=== PATIENT | male | born 1990 | race Caucasian/White ===

== ENCOUNTER → 2018-04-14 | Outpatient (CLI) | payer MEDICARE, OTHER ==
[~2018-04-14] MED LIST: ARIP10 PO; ATOR10 PO; CALC.25 PO; CHOL10002; Crutch1 EACH MISC; Desyrel50 MG; Floxin10 ML TOP; LISI20 PO; Norco 5-325 Ta1 EACH PO; Omeprazole20 M1; PRED20 PO; RANI150 PO; RAYALDEE30 MCG PO; SERT25 PO
[2018-04-14 15:14] LABS: BASOPHILS ABSOLUTE AUTO 0.08 K/mm3 (0.00-0.23); BASOPHILS PERCENT AUTO 1 % (0-2); EOSINOPHILS PERCENT AUTO 5 % (0-6); Hematocrit 44.3 % (37.0-53.0); Hemoglobin 15.2 g/dL (13.5-17.5); IMMATURE GRAN ABSOLUTE AUTO 0.01 K/mm3 (0.00-0.10); IMMATURE GRAN PERCENT AUTO 0 % (0-1); LYMPHOCYTES ABSOLUTE AUTO 2.17 K/mm3 (0.84-5.20); LYMPHOCYTES PERCENT AUTO 35 % (21-46); MONOCYTES ABSOLUTE AUTO 0.55 K/mm3 (0.16-1.47); MONOCYTES PERCENT AUTO 9 % (4-13); Mean Corpuscular HGB 31.2 pg (26.0-34.0); Mean Corpuscular HGB Conc 34.3 g/dL (31.5-36.5); Mean Corpuscular Volume 91 fL (80-100); Mean Platelet Volume 9.2 fL (9.1-12.4); NEUTROPHILS ABSOLUTE AUTO 3.08 K/mm3 (1.96-9.15); NEUTROPHILS PERCENT AUTO 50 % (41-73); Platelet Count 335 K/mm3 (150-400); RDW Coefficient Variation 12.5 % (11.7-14.2); RDW Standard Deviation 41.7 fL (35.1-46.3); Red Blood Cell Count 4.87 M/mm3 (4.30-5.90); White Blood Cell Count 6.19 K/mm3 (4.00-11.30)
[2018-04-14 15:31] LABS: Albumin, Blood 3.2 g/dL (3.4-5.0); Albumin/Globulin Ratio 0.8 (0.8-1.8); Bilirubin, Total 0.2 mg/dL (0.1-1.0); Calcium, Blood 8.9 mg/dL (8.5-10.1); Creatinine, Blood 2.63 mg/dL (0.60-1.20); Potassium, Blood 4.1 mmol/L (3.5-5.5); Total Protein, Blood 7.2 g/dL (6.4-8.2)
== END ==
LOC: LAB EV 15:09 → LAB SHORT 15:09
PROVIDERS: Family Medicine
DX: F19.10 Other psychoactive substance abuse, uncomplicated (principal)
CPT/HCPCS: 80053; 85025; 85651; 86140

== ENCOUNTER → 2018-06-04 | Outpatient (CLI) | payer MEDICARE, OTHER ==
[~2018-06-04] MED LIST changes: +ACIDOPHILUS LA1 EACH PO; +CHOL10002 PO; +CIPR250 PO; +Calcitriol0.25 MCG PO; +DOCU100 PO; +ONDA4ODT MM; +TRAZ50 PO; +Tylenol325 MG PO
[2018-06-04 11:17] LABS: BASOPHILS ABSOLUTE AUTO 0.06 K/mm3 (0.00-0.23); BASOPHILS PERCENT AUTO 1 % (0-2); EOSINOPHILS ABSOLUTE AUTO 0.15 K/mm3 (0.00-0.68); EOSINOPHILS PERCENT AUTO 2 % (0-6); Hematocrit 46.9 % (37.0-53.0); Hemoglobin 15.8 g/dL (13.5-17.5); IMMATURE GRAN ABSOLUTE AUTO 0.02 K/mm3 (0.00-0.10); IMMATURE GRAN PERCENT AUTO 0 % (0-1); LYMPHOCYTES ABSOLUTE AUTO 1.59 K/mm3 (0.84-5.20); LYMPHOCYTES PERCENT AUTO 19 % (21-46); MONOCYTES ABSOLUTE AUTO 0.54 K/mm3 (0.16-1.47); MONOCYTES PERCENT AUTO 6 % (4-13); Mean Corpuscular HGB 31.1 pg (26.0-34.0); Mean Corpuscular HGB Conc 33.7 g/dL (31.5-36.5); Mean Corpuscular Volume 92 fL (80-100); NEUTROPHILS ABSOLUTE AUTO 6.22 K/mm3 (1.96-9.15); NEUTROPHILS PERCENT AUTO 73 % (41-73); Platelet Count 327 K/mm3 (150-400); RDW Coefficient Variation 12.8 % (11.7-14.2); Red Blood Cell Count 5.08 M/mm3 (4.30-5.90); White Blood Cell Count 8.58 K/mm3 (4.00-11.30)
[2018-06-04 11:31] LABS: Albumin, Blood 3.7 g/dL (3.4-5.0); Albumin/Globulin Ratio 0.9 (0.8-1.8); Bilirubin, Total 0.4 mg/dL (0.1-1.0); Bun/Creatinine Ratio 13.7 (12.0-20.0); Globulin, Blood 4.3 g/dL (2.2-4.0); Potassium, Blood 4.9 mmol/L (3.5-5.5)
== END | disposition home or self-care (01) ==
LOC: LAB SHORT 11:11 → LAB EV 11:11
PROVIDERS: Physician Assistant Medical
DX: R10.84 Generalized abdominal pain (principal); Z77.011 Contact with and (suspected) exposure to lead
CPT/HCPCS: 80053; 83655; 83690; 85025

== ENCOUNTER 2018-06-05 18:09 | Inpatient (IN) | payer MEDICARE, OTHER ==
[~2018-06-05] VITALS: Ht 175.3 cm; Wt 102.0 kg
[~2018-06-05 18:09] MED LIST changes: -ACIDOPHILUS LA1 EACH PO; -CHOL10002 PO; -CIPR250 PO; -Calcitriol0.25 MCG PO; -DOCU100 PO; -ONDA4ODT MM; -TRAZ50 PO; -Tylenol325 MG PO
[2018-06-05] MEDS ORDERED: ARIP10 PO (18:22)
[2018-06-05 21:26] LABS: Source, Urine Clean Catch
[2018-06-05 21:28] LABS: Bilirubin, Urine Neg (Neg); Blood, Urine 1+ (Neg); Glucose Qualitative, Urine Neg (Neg); Ketones, Urine Neg (Neg); Leukocyte Esterase, Urine Neg (Neg); Nitrite, Urine Neg (Neg); Protein, Urine 4+ (Neg); Urobilinogen, Urine NORM (Normal)
[2018-06-05 21:38] LABS: Appearance, Urine Clear (Clear); Color, Urine Yellow (P-Yellow)
[2018-06-05 21:41] LABS: Granular Casts 0-2 /lpf (0); Squamous Epithelial Cells Rare /hpf (Few)
[2018-06-05 21:42] LABS: Bacteria Rare /hpf
[2018-06-05 21:55] LABS: Triglycerides 624 mg/dL (30-140)
[2018-06-05] MEDS ORDERED: Calcitriol0.25 MCG PO (22:14)
[2018-06-05] MEDS ORDERED: TRAZ50 PO (22:15)
[2018-06-05] MEDS ORDERED: ATOR10 PO (22:16)
[2018-06-05] MEDS ORDERED: CHOL10002 PO (22:18)
[2018-06-06 02:33] LABS: Adenovirus F 40/41 Not Detected (NOT DETECT); Astrovirus Not Detected (NOT DETECT); Campylobacter Sp Not Detected (NOT DETECT); Cryptosporidium Not Detected (NOT DETECT); Cyclospora Cayetanensis Not Detected (NOT DETECT); E. Coli O157 Not Detected (NOT DETECT); Entamoeba Histolytica Not Detected (NOT DETECT); Enteropathogenic E. coli-EPEC Not Detected (NOT DETECT); Enterotoxigenic E. coli-ETEC Not Detected (NOT DETECT); Giardia Lamblia Not Detected (NOT DETECT); Norovirus GI/GII Not Detected (NOT DETECT); Plesiomonas Shigelloides Not Detected (NOT DETECT); Rotavirus A Not Detected (NOT DETECT); Salmonella Sp Not Detected (NOT DETECT); Sapovirus Not Detected (NOT DETECT); Shiga Toxin-prod E. coli-STEC Not Detected (NOT DETECT); Shigella/Enteroin E. coli-EIEC Not Detected (NOT DETECT); Vibrio Cholerae Not Detected (NOT DETECT); Vibrio Sp Not Detected (NOT DETECT); Yersinia Enterocolitica Not Detected (NOT DETECT)
[2018-06-06 04:09] LABS: Enteroaggregative E. coli-EAEC Detected (NOT DETECT)
[2018-06-06 04:52] LABS: BASOPHILS ABSOLUTE AUTO 0.04 K/mm3 (0.00-0.23); BASOPHILS PERCENT AUTO 0 % (0-2); EOSINOPHILS ABSOLUTE AUTO 0.16 K/mm3 (0.00-0.68); EOSINOPHILS PERCENT AUTO 1 % (0-6); Hematocrit 44.1 % (37.0-53.0); Hemoglobin 14.2 g/dL (13.5-17.5); IMMATURE GRAN ABSOLUTE AUTO 0.04 K/mm3 (0.00-0.10); IMMATURE GRAN PERCENT AUTO 0 % (0-1); LYMPHOCYTES ABSOLUTE AUTO 1.91 K/mm3 (0.84-5.20); LYMPHOCYTES PERCENT AUTO 17 % (21-46); MONOCYTES ABSOLUTE AUTO 1.06 K/mm3 (0.16-1.47); MONOCYTES PERCENT AUTO 10 % (4-13); Mean Corpuscular HGB 31.3 pg (26.0-34.0); Mean Corpuscular HGB Conc 32.2 g/dL (31.5-36.5); Mean Platelet Volume 9.4 fL (9.1-12.4); NEUTROPHILS ABSOLUTE AUTO 7.95 K/mm3 (1.96-9.15); NEUTROPHILS PERCENT AUTO 71 % (41-73); Platelet Count 320 K/mm3 (150-400); RDW Coefficient Variation 13.1 % (11.7-14.2); Red Blood Cell Count 4.53 M/mm3 (4.30-5.90); White Blood Cell Count 11.16 K/mm3 (4.00-11.30)
[2018-06-06 04:53] LABS: Mean Corpuscular Volume 97 fL (80-100)
[2018-06-06 05:26] LABS: Albumin/Globulin Ratio 0.8 (0.8-1.8); Bilirubin, Total 0.4 mg/dL (0.1-1.0); Bun/Creatinine Ratio 11.3 (12.0-20.0); Calcium, Blood 8.3 mg/dL (8.5-10.1); Creatinine, Blood 3.09 mg/dL (0.60-1.20); Potassium, Blood 4.7 mmol/L (3.5-5.5)
[2018-06-07 05:24] LABS: Hematocrit 41.7 % (37.0-53.0); Hemoglobin 13.3 g/dL (13.5-17.5)
[2018-06-07 05:48] LABS: Albumin, Blood 2.7 g/dL (3.4-5.0); Anion Gap 8 mmol/L (6-16); Blood Urea Nitrogen 26 mg/dL (8-24); Bun/Creatinine Ratio 9.9 (12.0-20.0); CO2, Blood 21 mmol/L (21-32); Calcium, Blood 8.5 mg/dL (8.5-10.1); Chloride, Blood 111 mmol/L (98-108); Creatinine, Blood 2.63 mg/dL (0.60-1.20); Glomerular Filtration Rate 31 (60-); Glucose, Blood 83 mg/dL (70-99); Magnesium, Blood 1.7 mg/dL (1.6-2.4); Phosphorus, Blood 3.2 mg/dL (2.5-4.9); Potassium, Blood 4.9 mmol/L (3.5-5.5); Sodium, Blood 140 mmol/L (136-145)
[2018-06-07] MEDS ORDERED: Tylenol325 MG PO (11:43)
[2018-06-07] MEDS ORDERED: CIPR250 PO (11:44)
[2018-06-07] MEDS ORDERED: DOCU100 PO (11:47)
[2018-06-07] MEDS ORDERED: ACIDOPHILUS LA1 EACH PO (11:49)
[2018-06-07] MEDS ORDERED: ONDA4ODT MM (11:50)
== END 2018-06-07 13:15 | disposition home or self-care (01) | DRG 392 ==
LOC: ER 18:09 → MEDS 21:22 → ENPENDDIS 06-07 11:30 → MEDS 06-07 13:15
PROVIDERS: Internal Medicine; Internal Medicine Nephrology; Nurse Practitioner Acute Care
DX: K57.32 Diverticulitis of large intestine without perforation or abscess without bleeding (principal); A04.4 Other intestinal Escherichia coli infections; N17.9 Acute kidney failure, unspecified; N18.3 Chronic kidney disease, stage 3 (moderate); I12.9 Hypertensive chronic kidney disease with stage 1 through stage 4 chronic kidney disease, or unspecified chronic kidney disease; F25.9 Schizoaffective disorder, unspecified; D63.1 Anemia in chronic kidney disease; E86.9 Volume depletion, unspecified; E78.5 Hyperlipidemia, unspecified; M10.9 Gout, unspecified; E88.09 Other disorders of plasma-protein metabolism, not elsewhere classified; R80.9 Proteinuria, unspecified; R31.29 Other microscopic hematuria; R74.8 Abnormal levels of other serum enzymes; Z79.899 Other long term (current) drug therapy; Z88.1 Allergy status to other antibiotic agents; Z88.0 Allergy status to penicillin; Z88.2 Allergy status to sulfonamides; Z88.8 Allergy status to other drugs, medicaments and biological substances; Z87.891 Personal history of nicotine dependence
CPT/HCPCS: 36415; 80053; 80069; 81001; 82570; 83690; 83735; 84300; 84478; 85014; 85018; 85025; 85651; 87507; 89055; 96360; 99284-25; J0744; J2060; J2405; J3010; J7030

== ENCOUNTER 2018-09-29 08:40 | Day surgery (SDC) | payer MEDICARE, OTHER ==
[~2018-09-29 08:40] MED LIST changes: +ACIDOPHILUS LA1 EACH PO; +CHOL10002 PO; +CIPR250 PO; +Calcitriol0.25 MCG PO; +DOCU100 PO; +ONDA4ODT MM; +TRAZ50 PO; +Tylenol325 MG PO
--- NOTE | 2018-09-29 10:05 | NUR ---
INTO STEP VIA YAS. BANDAIDE TO RIGHT LOWER BACK C/D/I. PT REPORTS 3/10 PAIN TO BIOPSY SITE. BP 184/126. PT DENIES NAUSEA. DANIE INITIATED.
--- NOTE | 2018-09-29 10:52 | NUR ---
GENESIS NDIAYE, RPA NOTIFIED THAT PT REPORTING 5/10 PAIN TO BIOPSY SITE.-ORDER OBTAINED FOR TYLENOL 1000MG PO X 1. SEE EMAR.
--- NOTE | 2018-09-29 11:26 | NUR ---
PT CONTINUES TO BE HYPERTENSIVE. REPORTS 2/10 PAIN TO BIOPSY SITE. PT TOLERATING FOOD AND FLUIDS WELL. UP TO BRP X 1 WITHOUT DIFFICULTY.
--- NOTE | 2018-09-29 11:49 | NUR ---
PT DENIES PAIN AT THIS TIME. DISCHARGE INSTRUCTIONS GIVEN. PT AND S/O VERBALIZE UNDERSTANDING.
--- NOTE | 2018-09-29 11:53 | NUR ---
PT TO CT VIA GURNEY. PT TO BE DISCHARGED POST CT SCAN.
--- NOTE | 2018-09-29 12:01 | NUR ---
PT TO CT SCAN-BLEEDING NOTED. PT TO BE MONITORED FOR 2 ADDITIONAL HOURS-PER GENESIS RPA. PT DENIES PAIN-BANDAIDE TO RIGHT LOWER BACK REMAINS C/D/I-NO NOTED BLEEDING OR SWELLING.
[2018-09-29 12:31] LABS: Performing Lab SYMBIODX; Test Name TISSUE BIOPSY
--- NOTE | 2018-09-29 12:40 | NUR ---
PT APPEARS TO BE SLEEPING WHEN NOT DISTURBED. BP 147/91
--- NOTE | 2018-09-29 13:02 | NUR ---
PT RESTING QUIETLY WITHOUT NOTED DISTRESS. S/O REMAINS AT BEDSIDE.
--- NOTE | 2018-09-29 13:48 | NUR ---
PT TO CT SCAN VIA [place].
--- NOTE | 2018-09-29 13:56 | NUR ---
PT OK TO DISCHARGE TO HOME PER RPA. GENESIS
[2018-10-24 13:22] LABS: Result SEE PATHOTH RESULTS
== END 2018-09-29 11:55 | disposition home or self-care (01) ==
LOC: CT 08:40
PROVIDERS: Internal Medicine Nephrology
DX: R80.9 Proteinuria, unspecified (principal); N18.3 Chronic kidney disease, stage 3 (moderate); I12.9 Hypertensive chronic kidney disease with stage 1 through stage 4 chronic kidney disease, or unspecified chronic kidney disease; D63.1 Anemia in chronic kidney disease; N25.81 Secondary hyperparathyroidism of renal origin; E86.9 Volume depletion, unspecified; E78.00 Pure hypercholesterolemia, unspecified; F17.210 Nicotine dependence, cigarettes, uncomplicated; E87.5 Hyperkalemia; E55.9 Vitamin D deficiency, unspecified; Z88.9 Allergy status to unspecified drugs, medicaments and biological substances; Z88.0 Allergy status to penicillin; Z88.2 Allergy status to sulfonamides
CPT/HCPCS: 50200; 77012; 88329

== ENCOUNTER 2018-10-20 09:13 | Day surgery (SDC) | payer MEDICARE, OTHER ==
--- NOTE | 2018-10-20 13:40 | NUR ---
10/20/18 1340 Elizabeth Santiago PT STS HIS PREP INSTRUCTIONS INDICATED 4 BOTTLES, HOWEVER HE ONLY RECEIVED 2. PT STS HE FOLLOWED DIRECTIONS CONSUMING 1 BOTTLE ON SATURDAY EVENING, AND 1 BOTTLE ON SATURDAY MORNING. PT DID NOT HAVE ANY REMAINING PREP FOR THE REQUIRED CLEAN OUT INSTRUCTIONS FOR Saturday & Saturday. PT ARRIVED TO [facility] AND INFORMED STAFF OF SITUATION. THIS NURSE CONSULTED DR. AWAD & WAS INSTRUCTED TO GIVE PT ENEMA TO HELP CLEAR OUT. PT RESULTS WERE GREEN/CLOWDY WITH THICK SEDAMENT. PT COMPLETED 2ND ENEMA WITH NO IMPROVED RESULTS. PT CONSULTED WITH & PROCEDURE NURSE IN WHICH THE DECISION WAS MADE TO CANCEL THE PROCEDURE & RESCHEDULE.
== END 2018-10-20 10:40 | disposition home or self-care (01) ==
LOC: ORSCSDS 09:13
DX: R10.9 Unspecified abdominal pain (principal); Z53.9 Procedure and treatment not carried out, unspecified reason; K92.1 Melena; K86.1 Other chronic pancreatitis; K57.32 Diverticulitis of large intestine without perforation or abscess without bleeding
CPT/HCPCS: J7120

== ENCOUNTER 2019-11-20 17:00 | Inpatient (IN) | payer MEDICARE, OTHER ==
[~2019-11-20] VITALS: Ht 175.3 cm; Wt 107.5 kg
[~2019-11-20 17:00] MED LIST changes: -Omeprazole20 M1; +Omeprazole20 M1 PO
[2019-11-20 17:46] LABS: BASOPHILS ABSOLUTE AUTO 0.05 K/mm3 (0.00-0.23); BASOPHILS PERCENT AUTO 1 % (0-2); EOSINOPHILS ABSOLUTE AUTO 0.19 K/mm3 (0.00-0.68); EOSINOPHILS PERCENT AUTO 3 % (0-6); Hematocrit 43.1 % (37.0-53.0); Hemoglobin 14.1 g/dL (13.5-17.5); IMMATURE GRAN ABSOLUTE AUTO 0.02 K/mm3 (0.00-0.10); IMMATURE GRAN PERCENT AUTO 0 % (0-1); LYMPHOCYTES ABSOLUTE AUTO 1.77 K/mm3 (0.84-5.20); LYMPHOCYTES PERCENT AUTO 24 % (21-46); MONOCYTES PERCENT AUTO 7 % (4-13); Mean Corpuscular HGB Conc 32.7 g/dL (31.5-36.5); Mean Corpuscular Volume 92 fL (80-100); Mean Platelet Volume 9.2 fL (9.1-12.4); NEUTROPHILS ABSOLUTE AUTO 4.82 K/mm3 (1.96-9.15); NEUTROPHILS PERCENT AUTO 66 % (41-73); Platelet Count 303 K/mm3 (150-400); RDW Standard Deviation 40.6 fL (35.1-46.3); White Blood Cell Count 7.35 K/mm3 (4.00-11.30)
[2019-11-20 17:47] LABS: Source, Urine Clean Catch
[2019-11-20 17:50] LABS: Bilirubin, Urine Neg (Neg); Blood, Urine 3+ (Neg); Glucose Qualitative, Urine Neg (Neg); Ketones, Urine Neg (Neg); Leukocyte Esterase, Urine Neg (Neg); Nitrite, Urine Neg (Neg); Protein, Urine 4+ (Neg); Specific Gravity, Urine 1.015 (1.003-1.022); Urobilinogen, Urine NORM (Normal)
[2019-11-20] MEDS ORDERED: CLON.1 PO (17:52)
[2019-11-20 17:53] LABS: Appearance, Urine Clear (Clear); Color, Urine Yellow (P-Yellow)
[2019-11-20 17:57] LABS: Amorphous Light (0-Heavy); Bacteria Few /hpf; Mucus Light (0-Heavy); Squamous Epithelial Cells Rare /hpf (Few); White Blood Cells, Urine 0-2 /hpf (0-5)
[2019-11-20 18:05] LABS: Albumin, Blood 3.2 g/dL (3.4-5.0); Albumin/Globulin Ratio 0.8 (0.8-1.8); Bilirubin, Total 0.2 mg/dL (0.1-1.0); Bun/Creatinine Ratio 10.8 (12.0-20.0); Calcium, Blood 9.1 mg/dL (8.5-10.1); Creatinine, Blood 4.27 mg/dL (0.60-1.20); Globulin, Blood 3.9 g/dL (2.2-4.0); Potassium, Blood 4.1 mmol/L (3.5-5.5); Total Protein, Blood 7.1 g/dL (6.4-8.2)
[2019-11-20 22:02] LABS: CHOL/HDL RATIO 9.5; Cholesterol 312 mg/dL (50-200); HDL Cholesterol 33 mg/dL (>39); LDL/HDL RATIO Unable to Calculate; Low Density Lipoprotein Chol Unable to Calculate mg/dL (0-110); Triglycerides 535 mg/dL (30-140); Very Low Density Lipoprot Chol Unable to Calculate mg/dL (6-28)
--- NOTE | 2019-11-21 00:06 | NUR ---
2330 PT ADMITTED TO ROOM 309 PER CART FROM ER; PT HAS THE FOLLOWING BP LISTED BELOW; REPORT RECEIVED FROM FEROZ HAGER IN ER. LAYIN/132 RIGHT UPPER ARM....204/119 LEFT UPPER ARM SITTIN/161 RIGHT UPPER ARM STANDIN/151 RIGHT LOWER ARM PT RATES ABD PAIN 6/10 AND FEELS SLIGHTLY ANXIOUS AT THIS MOMENT IN ROOM; VOICED INABILITY TAKE ANY MEDS SINCE 11/19/19. 0005 DR POSADA NOTIFIED WITH ORDERS RECEIVED.
--- NOTE | 2019-11-21 05:32 | NUR ---
SHIFT SUMMARY: 29 Y/O MALE HAD RESTLESS NIGHT AT TIMES THIS SHIFT; PTS BP VERY HYPERTENSIVE AT TIMES (APRESSOLINE 10MG IVP GIVEN X 1 WITH SLIGHT AFFECT NOTED); PTS ABD PAIN RATED 6/10 WITH DILAUDID 1MG IVP X 1 AND FENTANYL 50MG IVP X 1 GIVEN; ALERT AND ORIENTED X 4; BED LOW POSITION WITH CALL LIGHT AT SIDE; VOIDING CLEAR YELLOW FLUID.
[2019-11-21 05:45] LABS: Hematocrit 40.9 % (37.0-53.0); Hemoglobin 13.4 g/dL (13.5-17.5); Mean Corpuscular HGB 30.1 pg (26.0-34.0); Mean Corpuscular HGB Conc 32.8 g/dL (31.5-36.5); Mean Corpuscular Volume 92 fL (80-100); Mean Platelet Volume 9.5 fL (9.1-12.4); Platelet Count 283 K/mm3 (150-400); RDW Coefficient Variation 12.2 % (11.7-14.2); RDW Standard Deviation 41.1 fL (35.1-46.3); Red Blood Cell Count 4.45 M/mm3 (4.30-5.90)
[2019-11-21 06:10] LABS: Albumin/Globulin Ratio 0.9 (0.8-1.8); Bilirubin, Total 0.4 mg/dL (0.1-1.0); Bun/Creatinine Ratio 9.9 (12.0-20.0); Calcium, Blood 8.6 mg/dL (8.5-10.1); Creatinine, Blood 4.13 mg/dL (0.60-1.20); Globulin, Blood 3.5 g/dL (2.2-4.0); Potassium, Blood 3.8 mmol/L (3.5-5.5); Total Protein, Blood 6.5 g/dL (6.4-8.2)
--- NOTE | 2019-11-21 11:32 | NUR ---
IV FLUIDS TURNED DOWN TO 50ml/HR PER EMAR ORDERS.
[2019-11-21 13:19] LABS: Amylase, Blood 552 U/L (25-115)
--- NOTE | 2019-11-21 16:24 | NUR ---
PATIENT HAD A BUSY DAY BETWEEN THE ORDERS PLACED BY DR AL AND DR HUFF; MANY LABS, IMAGING, ETC. PATIENT STARTED OUT VERY HYPERTENSIVE AND SLOWLY HIS BLOOD PRESSURE HAS COME DOWN TO A SOMEWHAT NORMAL LEVEL. IV FLUIDS RUNNING AT 50/HR. PATIENT PLEASANT AND COOPERATIVE WITH STAFF. WILL CONTINUE TO MONITOR AND PROVIDE CARE NEEDED.
[2019-11-22 05:10] LABS: Hematocrit 39.9 % (37.0-53.0)
[2019-11-22 05:29] LABS: Albumin, Blood 2.8 g/dL (3.4-5.0); Anion Gap 8 mmol/L (6-16); Blood Urea Nitrogen 37 mg/dL (8-24); CO2, Blood 24 mmol/L (21-32); Calcium, Blood 8.6 mg/dL (8.5-10.1); Chloride, Blood 110 mmol/L (98-108); Creatinine, Blood 4.09 mg/dL (0.60-1.20); Glomerular Filtration Rate 18 (60-); Glucose, Blood 88 mg/dL (70-99); Magnesium, Blood 1.9 mg/dL (1.6-2.4); Potassium, Blood 3.9 mmol/L (3.5-5.5); Sodium, Blood 142 mmol/L (136-145)
[2019-11-22 05:31] LABS: Amylase, Blood 1024 U/L (25-115)
[2019-11-22] MEDS ORDERED: AMLO5 PO (10:06)
[2019-11-22] MEDS ORDERED: FAMO10 PO (10:07)
--- NOTE | 2019-11-22 10:25 | NUR ---
PATIENT GIVEN DISCHARGE INSTRUCTIONS WITH HIS GIRLFRIEND AT BEDSIDE. IV REMOVED. ALL QUESTIONS ANSWERED. EDUCATIONAL MATERIAL PROVIDED TO THE PATIENT. PATIENT TO DISCHARGE HOME WITH GIRLFRIEND. PATIENT LEFT NOW AT 1026.
== END 2019-11-22 10:33 | disposition home or self-care (01) | DRG 392 ==
LOC: ER 17:00 → MEDS 17:01 → ER 17:01 → MEDS 23:33
PROVIDERS: Emergency Medicine; Internal Medicine; Internal Medicine Nephrology; Physician Assistant; ADMIT Internal Medicine
DX: K52.9 Noninfective gastroenteritis and colitis, unspecified (principal); N02.8 Recurrent and persistent hematuria with other morphologic changes; N18.5 Chronic kidney disease, stage 5; N17.9 Acute kidney failure, unspecified; I12.0 Hypertensive chronic kidney disease with stage 5 chronic kidney disease or end stage renal disease; E78.1 Pure hyperglyceridemia; I77.6 Arteritis, unspecified; F25.9 Schizoaffective disorder, unspecified; M10.9 Gout, unspecified; F17.290 Nicotine dependence, other tobacco product, uncomplicated; E86.0 Dehydration; D63.1 Anemia in chronic kidney disease
CPT/HCPCS: 36415; 74150; 76705; 80053; 80061; 80069; 81001; 82150; 83690; 83735; 84145; 85014; 85018; 85025; 85027; 85651; 86141; 86850; 86900; 86901; 96361; 96374; 96375; 96376; 99285-25; A9270; G0378; J0360; J1170; J2405; J3010; J7030

== ENCOUNTER 2019-12-02 10:56 | Day surgery (SDC) | payer MEDICARE, OTHER ==
[~2019-12-02] VITALS: Ht 175.3 cm; Wt 103.0 kg
[~2019-12-02 10:56] MED LIST changes: +AMLO5 PO; +CLON.1 PO; +FAMO10 PO
[2019-12-02] MEDS ORDERED: FENO160 PO (11:33)
--- NOTE | 2019-12-02 14:42 | NUR ---
PT MEDICATED WITH TYLENOL 650MG PO FOR PAIN AT CATH INCERTION SITE 01/23. (V/O DR. RAYMOND) PT SITTING UP IN RECLINER EATING A SANDWICH. NO BLEEDING, OOZING OR HEMATOMA NOTED AT SITE. VSS. WILL CONTINUE TO MONITOR.
--- NOTE | 2019-12-02 15:31 | NUR ---
PT MEDICATED WITH FENTANYL 25MCG IV FOR PAIN 12/24 V/O FROM DR. BHATT. PLAN TO MEDICATE PT AND DISCHARGE SO PT CAN FILL HIS NORCO RX AND REST AT HOME. PT AGREES WITH PLAN AND WOULD LIKE TO GO HOME.
--- NOTE | 2019-12-02 15:53 | NUR ---
PT REPORTS IMPROVEMENT IN PAIN (2/10) AT CATHETER INSERTION SITE. PT DRESSED SELF WITH NO COMPLICATIONS. PT STATES HIS UNDERSTANDING OF DISCHARGE AND SITE CARE INSTRUCTIONS AND DENIES ANY QUESTIONS OR CONCERNS. PTS VSS. DENIES ANY CP. IV DCD WITH CATH IN TACT. PT DCD WITH HAND WRITTEN RX FOR NORCO IN HAND. PT TAKEN TO FRONT ENTERENCE VIA WHEELCHAIR BY THIS RN WHERE PTS MOTHER AWAITS.
== END 2019-12-02 15:50 | disposition home or self-care (01) ==
LOC: MHTC 10:56
DX: I12.0 Hypertensive chronic kidney disease with stage 5 chronic kidney disease or end stage renal disease (principal); N18.6 End stage renal disease; F25.9 Schizoaffective disorder, unspecified; Z88.0 Allergy status to penicillin; Z88.1 Allergy status to other antibiotic agents; Z79.899 Other long term (current) drug therapy; Z87.891 Personal history of nicotine dependence
CPT/HCPCS: 99152; 99153; A9270; C1750; C1769; J1644; J2250; J3010; J7040

== ENCOUNTER 2019-12-04 17:35 | Emergency (ER) | payer MEDICARE, OTHER ==
[~2019-12-04] VITALS: Ht 175.3 cm; Wt 104.3 kg
[~2019-12-04 17:35] MED LIST changes: +FENO160 PO
[2019-12-04 17:59] LABS: BASOPHILS ABSOLUTE AUTO 0.08 K/mm3 (0.00-0.23); BASOPHILS PERCENT AUTO 1 % (0-2); EOSINOPHILS ABSOLUTE AUTO 0.12 K/mm3 (0.00-0.68); EOSINOPHILS PERCENT AUTO 1 % (0-6); Hematocrit 46.1 % (37.0-53.0); Hemoglobin 15.2 g/dL (13.5-17.5); IMMATURE GRAN ABSOLUTE AUTO 0.04 K/mm3 (0.00-0.10); IMMATURE GRAN PERCENT AUTO 0 % (0-1); LYMPHOCYTES ABSOLUTE AUTO 1.21 K/mm3 (0.84-5.20); LYMPHOCYTES PERCENT AUTO 10 % (21-46); MONOCYTES ABSOLUTE AUTO 0.98 K/mm3 (0.16-1.47); MONOCYTES PERCENT AUTO 8 % (4-13); Mean Corpuscular HGB 30.3 pg (26.0-34.0); Mean Corpuscular Volume 92 fL (80-100); Mean Platelet Volume 9.8 fL (9.1-12.4); NEUTROPHILS ABSOLUTE AUTO 9.85 K/mm3 (1.96-9.15); NEUTROPHILS PERCENT AUTO 80 % (41-73); Platelet Count 307 K/mm3 (150-400); RDW Coefficient Variation 12.3 % (11.7-14.2); RDW Standard Deviation 41.4 fL (35.1-46.3); Red Blood Cell Count 5.02 M/mm3 (4.30-5.90); White Blood Cell Count 12.28 K/mm3 (4.00-11.30)
[2019-12-04 18:17] LABS: Albumin, Blood 3.8 g/dL (3.4-5.0); Albumin/Globulin Ratio 0.9 (0.8-1.8); Bilirubin, Total 0.5 mg/dL (0.1-1.0); Bun/Creatinine Ratio 11.5 (12.0-20.0); Calcium, Blood 9.8 mg/dL (8.5-10.1); Creatinine, Blood 5.58 mg/dL (0.60-1.20); Globulin, Blood 4.4 g/dL (2.2-4.0); Total Protein, Blood 8.2 g/dL (6.4-8.2)
[2019-12-04 18:37] LABS: Source, Urine Clean Catch
[2019-12-04 18:39] LABS: Bilirubin, Urine Neg (Neg); Blood, Urine 2+ (Neg); Glucose Qualitative, Urine Neg (Neg); Ketones, Urine 1+ (Neg); Leukocyte Esterase, Urine Neg (Neg); Nitrite, Urine Neg (Neg); Protein, Urine 4+ (Neg); Urobilinogen, Urine NORM (Normal)
[2019-12-04 18:47] LABS: Appearance, Urine Clear (Clear); Color, Urine Yellow (P-Yellow)
[2019-12-04 18:49] LABS: Bacteria Few /hpf; Squamous Epithelial Cells Not Seen /hpf (Few)
[2019-12-04] MEDS ORDERED: Flagyl500 MG PO (20:19)
[2019-12-04] MEDS ORDERED: Norco 5-325 Ta1 EACH PO (20:19)
[2019-12-04] MEDS ORDERED: Cipro500 MG PO (20:19)
== END 2019-12-04 20:50 | disposition home or self-care (01) ==
LOC: ER 17:35
PROVIDERS: Physician Assistant
DX: K57.32 Diverticulitis of large intestine without perforation or abscess without bleeding (principal); F25.9 Schizoaffective disorder, unspecified; M10.9 Gout, unspecified; E78.5 Hyperlipidemia, unspecified; I12.9 Hypertensive chronic kidney disease with stage 1 through stage 4 chronic kidney disease, or unspecified chronic kidney disease; N18.4 Chronic kidney disease, stage 4 (severe); F17.210 Nicotine dependence, cigarettes, uncomplicated; Z88.0 Allergy status to penicillin; Z88.2 Allergy status to sulfonamides; Z88.1 Allergy status to other antibiotic agents; Z88.8 Allergy status to other drugs, medicaments and biological substances; Z79.899 Other long term (current) drug therapy
CPT/HCPCS: 36415; 74176; 80053; 81001; 83690; 85025; 93005; 93010; 96374; 99284-25; A9270-GY; J2405

== ENCOUNTER 2019-12-15 22:29 | Inpatient (IN) | payer MEDICARE, OTHER ==
[~2019-12-15] VITALS: Ht 175.3 cm; Wt 102.9 kg
[~2019-12-15 22:29] MED LIST changes: +Cipro500 MG PO; +Flagyl500 MG PO
[2019-12-15 23:18] LABS: BASOPHILS ABSOLUTE AUTO 0.05 K/mm3 (0.00-0.23); BASOPHILS PERCENT AUTO 1 % (0-2); EOSINOPHILS ABSOLUTE AUTO 0.21 K/mm3 (0.00-0.68); EOSINOPHILS PERCENT AUTO 2 % (0-6); Hematocrit 44.6 % (37.0-53.0); Hemoglobin 14.4 g/dL (13.5-17.5); IMMATURE GRAN ABSOLUTE AUTO 0.02 K/mm3 (0.00-0.10); IMMATURE GRAN PERCENT AUTO 0 % (0-1); LYMPHOCYTES ABSOLUTE AUTO 1.99 K/mm3 (0.84-5.20); LYMPHOCYTES PERCENT AUTO 21 % (21-46); MONOCYTES ABSOLUTE AUTO 0.71 K/mm3 (0.16-1.47); MONOCYTES PERCENT AUTO 8 % (4-13); Mean Corpuscular HGB Conc 32.3 g/dL (31.5-36.5); Mean Corpuscular Volume 93 fL (80-100); Mean Platelet Volume 9.6 fL (9.1-12.4); NEUTROPHILS ABSOLUTE AUTO 6.53 K/mm3 (1.96-9.15); NEUTROPHILS PERCENT AUTO 69 % (41-73); Platelet Count 344 K/mm3 (150-400); RDW Coefficient Variation 11.9 % (11.7-14.2); RDW Standard Deviation 41.1 fL (35.1-46.3); White Blood Cell Count 9.51 K/mm3 (4.00-11.30)
[2019-12-15 23:40] LABS: Alanine Aminotransfer (ALT/SGP 20 U/L (12-78); Albumin, Blood 3.4 g/dL (3.4-5.0); Albumin/Globulin Ratio 0.8 (0.8-1.8); Alk Phos 43 U/L (50-136); Anion Gap 10 mmol/L (6-16); Aspartate Aminotrans (AST/SGOT 16 U/L (12-37); Bilirubin, Total 0.2 mg/dL (0.1-1.0); Blood Urea Nitrogen 47 mg/dL (8-24); Bun/Creatinine Ratio 7.9 (12.0-20.0); CO2, Blood 24 mmol/L (21-32); Calcium, Blood 8.6 mg/dL (8.5-10.1); Chloride, Blood 106 mmol/L (98-108); Creatinine, Blood 5.96 mg/dL (0.60-1.20); Glomerular Filtration Rate 12 (60-); Glucose, Blood 134 mg/dL (70-99); Potassium, Blood 4.3 mmol/L (3.5-5.5); Sodium, Blood 140 mmol/L (136-145); Total Protein, Blood 7.4 g/dL (6.4-8.2); Troponin I <0.015 ng/mL (0.000-0.040)
--- NOTE | 2019-12-16 00:52 | NUR ---
Pt arrival to PCU 11 at 0054 via gurney with ED RN at bedside. pt independant transfer, alert and oriented. pt reporting very painful with even slight inspiration, pt with rapid, shallow breaths. vss. oriented to room and questions answered. Awaiting admitting drAshia to assess pt for admit orders. No acute concerns to note at this time, will continue to monitor.
[2019-12-16] MEDS ORDERED: CALC.25 PO (01:47)
--- NOTE | 2019-12-16 06:23 | NUR ---
Shift Summary Pt admitted this shift for bilateral PE. VSS, oxygen saturations 98% on RA, alert and oriented, able to express needs with call light, voids in urinal at bedside. Pt started on heparin gtt this shift, rate per orders 15u/kg/hr at this time. First dose of warfarin given this shift, pt educated on risks, side effects, and education provided on vitamin K+. Pt is had first ever hemodialysis on 12/14/19 (PE pain began 1hr post hemodialysis); Dr Stevens consulted and in to see pt this AM. Plan for hemodialysis today. Pt aware of plan. Permicath on RCW. Site WNL. No acute changes from admission assessment. Will continue to monitor.
--- NOTE | 2019-12-16 07:49 | NUR ---
Bedside report was received from Denice Preciado. FEROZ. the pt appears to be sleeping, but awakens easily to gentle verbal stimuli, and is then alert and oriented. Diaphoresis noted , but pt denies feeling feverish or chilled. OraL temperature taken, WNL. Heparin drip was verified at bedside report.
--- NOTE | 2019-12-16 09:12 | NUR ---
Pt taken to dialysis in wheelchair by JACKY
[2019-12-16 09:16] LABS: Hematocrit 44.1 % (37.0-53.0); Hemoglobin 13.7 g/dL (13.5-17.5); Mean Corpuscular HGB 29.3 pg (26.0-34.0); Mean Corpuscular HGB Conc 31.1 g/dL (31.5-36.5); Mean Corpuscular Volume 94 fL (80-100); Mean Platelet Volume 9.8 fL (9.1-12.4); Platelet Count 311 K/mm3 (150-400); RDW Standard Deviation 41.9 fL (35.1-46.3); Red Blood Cell Count 4.68 M/mm3 (4.30-5.90); White Blood Cell Count 7.02 K/mm3 (4.00-11.30)
[2019-12-16 09:31] LABS: International Normalized Ratio 1.05; Prothrombin Time Results 11.2 Sec (9.7-11.5)
[2019-12-16 09:33] LABS: Albumin, Blood 3.2 g/dL (3.4-5.0); Albumin/Globulin Ratio 0.8 (0.8-1.8); Bilirubin, Total 0.2 mg/dL (0.1-1.0); Bun/Creatinine Ratio 7.7 (12.0-20.0); Creatinine, Blood 5.82 mg/dL (0.60-1.20); Potassium, Blood 5.3 mmol/L (3.5-5.5); Total Protein, Blood 7.2 g/dL (6.4-8.2)
--- NOTE | 2019-12-16 18:10 | NUR ---
Sergo had dialysis this morning at 9 am, and stated that it went much better and he felt better than his first two experiences with dialysis. HIs explanation was that they used a different system than before, which made the difference. The pt has requested pain medication twice today, for left flank and left anterior lower rib cage area pain, worse with activity and inspiration. He has been alert, oriented, cooperative and without any other complaints today.
--- NOTE | 2019-12-16 18:22 | NUR ---
Call to pharmacy to ask about coumadin dosing. Pt received coumadin at 0200 this morning, so heparin gtt continues and labs will be rechecked tomorrow morning, and appropriate coumadin dose ordered for tomorrow.
[2019-12-17 01:43] LABS: International Normalized Ratio 1.18; Prothrombin Time Results 12.5 Sec (9.7-11.5)
[2019-12-17 01:49] LABS: Albumin, Blood 3.1 g/dL (3.4-5.0); Anion Gap 6 mmol/L (6-16); Blood Urea Nitrogen 34 mg/dL (8-24); Bun/Creatinine Ratio 6.4 (12.0-20.0); CO2, Blood 29 mmol/L (21-32); Calcium, Blood 8.6 mg/dL (8.5-10.1); Chloride, Blood 102 mmol/L (98-108); Creatinine, Blood 5.28 mg/dL (0.60-1.20); Glomerular Filtration Rate 14 (60-); Glucose, Blood 94 mg/dL (70-99); Hematocrit 42.7 % (37.0-53.0); Hemoglobin 13.6 g/dL (13.5-17.5); Magnesium, Blood 2.1 mg/dL (1.6-2.4); Phosphorus, Blood 5.7 mg/dL (2.5-4.9); Potassium, Blood 4.6 mmol/L (3.5-5.5); Sodium, Blood 137 mmol/L (136-145)
--- NOTE | 2019-12-17 06:01 | NUR ---
SHIFT SUMMARY NO ACUTE CHANGES NOTED THROUGH THE NIGHT. PT REMAINS ON RA, O2 >95%, PT DENIES ANY WORSENING OF SOB, PAIN MANAGED WITH 50 MCG IV FENTANYL PER EMAR. PT STATES PAIN IS POSITIONAL BUT REMAINS IN THE LEFT LOWER FLANK/LOBE AREA. HEATING PAD WAS PROVIDED FOR COMFORT. PT DENIES CP. HE IS INDEPENDENT IN THE ROOM, CALLS FOR ASSISTANCE PRN. HEPARIN GTT INFUSING @ 20 U/KG/HR. PT IS TOLERATING PO INTAKE. VOIDING CLEAR YELLOW URINE WNL, CALL LIGHT IN REACH, WCTM
--- NOTE | 2019-12-17 07:00 | NUR ---
ASSUMED CARE AT THIS TIME, REPORT FROM IFEOMA REDMAN. PT RESTING IN BED AT 45 DEGREE INCLINE. A/A/OX4. DENIES NEEDS AT THIS TIME.
--- NOTE | 2019-12-17 07:00 | NUR ---
HEPARIN INFUSING AT 20 UNITS/ KG, VERIFIED BY FEROZ DIA.
--- NOTE | 2019-12-17 09:13 | NUR ---
SPOKE WITH DIALYSIS NURSE TONYA, 0900 MEDS TO BE HELD PRIOR TO DIALYSIS.
--- NOTE | 2019-12-17 09:30 | NUR ---
TAKEN TO DIAYLSIS VIA WHEEL CHAIR AT THIS TIME.
--- NOTE | 2019-12-17 11:48 | NUR ---
REPORT TO MEDICAL FLOOR RN TO ASSUME CARE.
--- NOTE | 2019-12-17 12:36 | NUR ---
TAKEN TO ROOM 333 FROM DIALYSIS. HEPARIN INFUSING AT 20UNIT/KG AT TIME OF TRANSFER TO MEDICAL FLOOR.
--- NOTE | 2019-12-17 13:12 | NUR ---
PATIENT ARRIVED TO THE FLOOR AT 1300 FROM DIALYSIS. REPORT RECEIVED BY FEROZ FREEMAN IN PCU, BED AND PATIENT'S PERSONAL BELONGINGS BROUGHT TO ROOM 333. PATIENT'S HEPARIN GTT NOTED TO BE INFUSING THROUGH RIGHT ARM IV AT 20U/KG/HR. NEXT PTT AT 1500. ORIENTED TO ROOM, PATIENT INDEPENDENT IN THE ROOM AND CALLS APPROPRIATELY. PATIENT DENIES PAIN, REPORTS TIREDNESS DUE TO INTERRUPTED SLEEP PATTERNS, NAP ENCOURAGED.
--- NOTE | 2019-12-17 16:33 | NUR ---
PATIENT'S HEPARIN GTT REMAINS AT 20U/KG/HR, RECENT PTT LEVEL THERAPEUTIC. NO CHANGE IN RATE PER PHARMACY.
--- NOTE | 2019-12-17 18:44 | NUR ---
SHIFT SUMMARY PATIENT REMAINS ON HEPARIN DRIP 20U/KG/HR, COUMADIN BRIDGING. REPORTS PAIN WELL MANAGED WITH PRN PO ANALGESIC. PATIENT INDEPENDENT IN THE ROOM, DENIES SOB/SLADE.
[2019-12-18 04:36] LABS: International Normalized Ratio 1.31; Prothrombin Time Results 13.8 Sec (9.7-11.5)
--- NOTE | 2019-12-18 05:25 | NUR ---
SHIFT SUMMARY NO ACUTE CHANGES TO REPORT THIS SHIFT. PT CONTINUES TO HAVE LEFT FLANK PAIN THAT IS RELIEVED WITH HYDROCODONE. PT HAS RESTED COMFORTABLY T/O THE NIGHT, HE HAS BEEN INDEPENDENT IN THR ROOM. HEPARIN GTT INFUSING ORDERED WITH NO RATE CHANGES THIS SHIFT. ASSESSMENT REMAINS UNCHANGED. BED IN LOWEST POSITION, CALL LIGHT WITHIN REACH. WILL CONTINUE TO MONITOR AND REPORT TO ONCOMING RN.
[2019-12-18 07:32] LABS: Hemoglobin 13.3 g/dL (13.5-17.5); Mean Platelet Volume 9.8 fL (9.1-12.4); Platelet Count 345 K/mm3 (150-400)
--- NOTE | 2019-12-18 14:17 | NUR ---
ASSUMED CARE ASSUMED CARE OF PT. PT SLEEPING IN ROOM. WILL CONTINUE TO MONITOR.
--- NOTE | 2019-12-18 16:48 | NUR ---
SHIFT SUMMARY PT PAIN WELL CONTROLLED THIS AFTERNOON. PT STATES TOLERABLE PAIN LEVEL. HEPARIN GTT UNCHANGED PER PHARMACY CONSULT. PT SATING WELL THROUGHOUT SHIFT ON RA IN THE 90S. NO OTHER CHANGES IN ASSESSMENT AT THIS TIME. VSS. WILL CONTINUE TO MONITOR UNTIL TURNOVER IS COMPLETE.
[2019-12-19 05:13] LABS: Hemoglobin 13.4 g/dL (13.5-17.5)
[2019-12-19 05:28] LABS: International Normalized Ratio 1.82; Prothrombin Time Results 18.8 Sec (9.7-11.5)
[2019-12-19 05:33] LABS: Albumin, Blood 3.3 g/dL (3.4-5.0); Anion Gap 8 mmol/L (6-16); Blood Urea Nitrogen 40 mg/dL (8-24); Bun/Creatinine Ratio 6.3 (12.0-20.0); CO2, Blood 28 mmol/L (21-32); Calcium, Blood 9.2 mg/dL (8.5-10.1); Chloride, Blood 101 mmol/L (98-108); Creatinine, Blood 6.37 mg/dL (0.60-1.20); Glomerular Filtration Rate 11 (60-); Glucose, Blood 90 mg/dL (70-99); Magnesium, Blood 2.6 mg/dL (1.6-2.4); Phosphorus, Blood 7.7 mg/dL (2.5-4.9); Potassium, Blood 4.6 mmol/L (3.5-5.5); Sodium, Blood 137 mmol/L (136-145)
--- NOTE | 2019-12-19 07:34 | NUR ---
SENIOR MANAGER MMCOE SUMMARY A/O X4. INDEPENDENT IN ROOM. PT HAD SOME PAIN IN LUNGS WHENEVER HE TAKES A DEEP BREATH. DENIES SOB. ROOM AIR SATTING IN THE HIGH 90'S TO 100%. PT STATES IT HURTS THE WORST WHEN HE FALLS ASLEEP AND LAYS DOWN. THIS HAS BEEN AN ONGOING OCCURANCE FOR HIM. CONT. HEPARIN DRIP THROUGHOUT THE NIGHT. MEDICATED FOR PAIN PER EMAR THROUGHOUT THE NIGHT. PLEASANT AND COOPERATIVE. REPORT GIVEN TO AM NURSE.
--- NOTE | 2019-12-19 16:39 | NUR ---
SHIFT SUMMARY PT IS A/O X 4 WITH C/O PAIN X 1 AND PAIN MEDS WERE EFFECTIVE. PT IS VERY INQUISITIVE AND WANTS TO LEARN ABOUT HIS CARE AND DX. PT WENT TO DIALYSIS FIRST THING THIS MORNING AND THEN RETURNED TO HIS ROOM WHEN COMPLETED. HIS DIALYSIS PORT IS C.D.I. TO LEFT CHEST WALL. HEPARIN DRIP CONTINUES ORDERED BY AND MANAGED BY PHARMACIST. PT IS ABLE TO MAKE HIS NEEDS KNOWN AND CALLS FOR HELP WHEN NEEDED. HIS CALL [facility] IS IN REACH.
--- NOTE | 2019-12-19 23:01 | NUR ---
12/19/19 HEPARIN BAG CHANGED AND VERIFIED WITH KIRK Cagle RN.
[2019-12-20 03:26] LABS: Hematocrit 36.6 % (37.0-53.0); Hemoglobin 11.5 g/dL (13.5-17.5)
[2019-12-20 03:38] LABS: International Normalized Ratio 2.12; Prothrombin Time Results 21.7 Sec (9.7-11.5)
[2019-12-20 03:41] LABS: Albumin, Blood 2.9 g/dL (3.4-5.0); Anion Gap 7 mmol/L (6-16); Blood Urea Nitrogen 36 mg/dL (8-24); Bun/Creatinine Ratio 6.6 (12.0-20.0); CO2, Blood 30 mmol/L (21-32); Calcium, Blood 8.4 mg/dL (8.5-10.1); Chloride, Blood 102 mmol/L (98-108); Creatinine, Blood 5.49 mg/dL (0.60-1.20); Glomerular Filtration Rate 13 (60-); Glucose, Blood 85 mg/dL (70-99); Magnesium, Blood 2.2 mg/dL (1.6-2.4); Phosphorus, Blood 6.4 mg/dL (2.5-4.9); Potassium, Blood 4.3 mmol/L (3.5-5.5); Sodium, Blood 139 mmol/L (136-145)
--- NOTE | 2019-12-20 06:13 | NUR ---
12/20/19 0545 PT MEDICATED ONCE FOR PAIN BUT OTHERWISE SLEPT WELL. VITALS STABLE. UNEVENTFUL NIGHT.
[2019-12-20] MEDS ORDERED: WARF4 PO (13:04)
--- NOTE | 2019-12-20 15:04 | NUR ---
PT DISCHARGED HOME WITH DC INSTRUCTIONS. HEPARIG GTT STOPPED AT 1300 AND COUMADIN 5MG GIVEN. PT MEDICATED WITH [employer] BEFORE DC FOR PLERICITY. MOM TO DRIVE PT TO PHARMACY AND HOME. BELONGINGS SENT HOME WITH PT INCLUDING HIS PERSONAL COMPUTER AND VETERINARY MEAT INSPECTOR.
[2019-12-21 18:08] LABS: ACT. PRT C RESIST W/FV DEFIC. 2.7 ratio (.); APTT 33.2 sec (.); DRVVT CONFIRM SECONDS 41.7 sec (.); DRVVT RATIO 1.4 ratio (.); FACTOR VIII ACTIVITY 213 % (.); HEXAGONAL PHOSPHOLIPID NEUTRAL 0 sec (.); HOMOCYSTEINE 19.2 umol/L (.); PRT C ACTIVITY (CHROMOGENIC) 164 % (.)
== END 2019-12-20 14:44 | disposition home or self-care (01) | DRG 175 ==
LOC: ER 22:29 → PCU 22:30 → ER 12-16 00:48 → PCU 12-16 00:48 → MEDS 12-17 11:55 → ENPENDDIS 12-20 12:14 → MEDS 12-20 14:44
PROVIDERS: Internal Medicine Nephrology; Physician Assistant; ADMIT Internal Medicine
PROC: 5A1D70Z Performance of Urinary Filtration, Intermittent, Less than 6 Hours Per Day (ICD-10-PCS; principal; 2019-12-16)
DX: I26.99 Other pulmonary embolism without acute cor pulmonale (principal); N18.6 End stage renal disease; D69.0 Allergic purpura; I12.0 Hypertensive chronic kidney disease with stage 5 chronic kidney disease or end stage renal disease; E87.1 Hypo-osmolality and hyponatremia; N02.8 Recurrent and persistent hematuria with other morphologic changes; Z99.2 Dependence on renal dialysis; F25.9 Schizoaffective disorder, unspecified; E78.5 Hyperlipidemia, unspecified; E87.70 Fluid overload, unspecified; M10.9 Gout, unspecified; Z88.1 Allergy status to other antibiotic agents; Z88.0 Allergy status to penicillin; Z88.2 Allergy status to sulfonamides; F17.290 Nicotine dependence, other tobacco product, uncomplicated; D63.1 Anemia in chronic kidney disease
CPT/HCPCS: 36415; 71275; 80053; 80069; 83690; 83735; 83880; 84132; 84484; 85014; 85018; 85025; 85027; 85049; 85610; 85730; 93005; 93010; 93306; 96375; 96376; 99285-25; A9270-GY; G0378; J1644; J3010; Q9967

== ENCOUNTER 2020-10-05 13:48 | Day surgery (SDC) | payer MEDICARE, OTHER ==
[~2020-10-05] VITALS: Ht 177.8 cm; Wt 82.0 kg
[~2020-10-05 13:48] MED LIST changes: +ELIQUIS5 MG PO; +SERT50 PO; +WARF4 PO
--- NOTE | 2020-10-05 18:18 | NUR ---
PATIENT RETURNED FROM THE CATHLAB TO RECOVERY. PATIENT IN A RECLINER AND PLACED ON THE MONITOR. VVS. AWAKE AND ALERT. CALL LIGHT IN REACH. FOOD TRAY SERVED. PLAVIX 225 MG PO GIVEN AND TAKEN WITH MEAL ORDERED.
[2020-10-05] MEDS ORDERED: CLOP75 PO (18:25)
--- NOTE | 2020-10-05 19:00 | NUR ---
PATIENT PIV REMOVED, CATHETER TIP INTACT. PRESSURE DRESSING APPLIED. REVIEWED ALL DISCHARGE INSTRUCTIONS AND GAVE COPIES. CALLED IN TWO SCRIPTS TO JALIL LIRIANO AND PLAVIX. INITIAL DOSE OF PLAVIX TOLERATED WITH MEAL. PATIEWNT DRESSED SELF. ALL BELONGINGS GATHERED AND NO FURTHER QUESTIONS NOTED FROM THE PATIENT. PATIENT STATED THAT LEFT ARM HAS SMOE TINGLING SENSATION AND LEFT ARE WAS PLACED IN A SLING ORDERED BY MD. PATIENT DISCHARGED HOME WITH HOMEOWNER ASSOCIATION MANAGER. WHEELCHAIR TO THE CAR. NO PAIN NOTED.
== END 2020-10-05 23:12 | disposition home or self-care (01) ==
LOC: MHTC 13:48
DX: N18.6 End stage renal disease (principal); Z87.891 Personal history of nicotine dependence; Z88.0 Allergy status to penicillin; Z88.1 Allergy status to other antibiotic agents; Z88.2 Allergy status to sulfonamides; Z88.8 Allergy status to other drugs, medicaments and biological substances; Z99.2 Dependence on renal dialysis; Z20.822 Contact with and (suspected) exposure to COVID-19; Z79.01 Long term (current) use of anticoagulants; Z79.02 Long term (current) use of antithrombotics/antiplatelets
CPT/HCPCS: 64415; 76937; 99152; 99153; A9270; C1725; C1769; C1889; C1894; G2170; J1644; J2250; J2405; J3010; J7040

== ENCOUNTER 2021-02-01 12:17 | Day surgery (SDC) | payer MEDICARE, OTHER ==
[~2021-02-01] VITALS: Ht 177.8 cm; Wt 89.4 kg
[~2021-02-01 12:17] MED LIST changes: +CLOP75 PO
[2021-02-01] MEDS ORDERED: PEPCID40 MG PO (13:16)
[2021-02-01] MEDS ORDERED: CALC.25 PO (13:16)
--- NOTE | 2021-02-01 15:37 | NUR ---
PRESSURE DRESSING REMOVED FROM RIGHT SIDED PERMCATH, NO ACTIVE BLEEDING NOTED. DRESSING REMAINS ON. PROVIDED WITH MEAL TRAY, PT CALLED FOR TRANSPORTATION HOME.
--- NOTE | 2021-02-01 16:12 | NUR ---
PT PROVIDED WITH MEAL TRAY, TOLERATES WITH NO ISSUES. NEW PRESSURE DRESSING APPLIED TO RIGHT SIDE CHEST, SLIGHT OOZING NOTED ON DRESSING OF PERMCATH. PT REPORTS COMFORT FROM PRESSURE. NOT ACTIVELY BLEEDING, HOWEVER, NOT WANTING TO REMOVE ORIGINAL DRESSING AT THIS TIME TO PREVENT INFECTION. PT STATES THAT HE HAS DIALYSIS AT [address] BHATT MADE AWARE OF SITUATION, OKAY FOR PT TO GO HOME WITH PRESSURE DRESSING IN PLACE. DISCHARGE INSTRUCTIONS REVIEWED, PAPERWORK PROVIDED. VERBAL UNDERSTANDING. IV REMOVED WITH CATH INTACT, PRESSURE DRESSING APPLIED. AMBULATES WITH STEADY GAIT. DENIES NEED FOR W/C OUT TO PRIVATE VEHICLE.
== END 2021-02-01 16:42 | disposition home or self-care (01) ==
LOC: MHTC 12:17
DX: T82.41XA Breakdown (mechanical) of vascular dialysis catheter, initial encounter (principal); N18.6 End stage renal disease; Y73.8 Miscellaneous gastroenterology and urology devices associated with adverse incidents, not elsewhere classified; Z87.891 Personal history of nicotine dependence; Z79.02 Long term (current) use of antithrombotics/antiplatelets; Z99.2 Dependence on renal dialysis
CPT/HCPCS: 36581; 37248; 75827; 93005; 93010; 99152; 99153; C1725; C1750; C1769; J1644; J2250; J3010; J7040; Q9967

== ENCOUNTER 2021-02-15 12:48 | Day surgery (SDC) | payer MEDICARE, OTHER ==
[~2021-02-15] VITALS: Ht 177.8 cm; Wt 90.0 kg
[~2021-02-15 12:48] MED LIST changes: +PEPCID40 MG PO
[2021-02-15 14:18] LABS: BASOPHILS ABSOLUTE AUTO 0.06 K/mm3 (0.00-0.23); BASOPHILS PERCENT AUTO 1 % (0-2); EOSINOPHILS ABSOLUTE AUTO 0.18 K/mm3 (0.00-0.68); EOSINOPHILS PERCENT AUTO 2 % (0-6); Hematocrit 35.7 % (37.0-53.0); Hemoglobin 11.6 g/dL (13.5-17.5); IMMATURE GRAN ABSOLUTE AUTO 0.06 K/mm3 (0.00-0.10); IMMATURE GRAN PERCENT AUTO 1 % (0-1); LYMPHOCYTES ABSOLUTE AUTO 1.67 K/mm3 (0.84-5.20); LYMPHOCYTES PERCENT AUTO 22 % (21-46); MONOCYTES ABSOLUTE AUTO 0.56 K/mm3 (0.16-1.47); MONOCYTES PERCENT AUTO 7 % (4-13); Mean Corpuscular HGB 30.6 pg (26.0-34.0); Mean Corpuscular HGB Conc 32.5 g/dL (31.5-36.5); Mean Corpuscular Volume 94 fL (80-100); Mean Platelet Volume 9.8 fL (9.1-12.4); NEUTROPHILS ABSOLUTE AUTO 5.06 K/mm3 (1.96-9.15); NEUTROPHILS PERCENT AUTO 67 % (41-73); Platelet Count 235 K/mm3 (150-400); RDW Coefficient Variation 14.2 % (11.7-14.2); RDW Standard Deviation 49.7 fL (35.1-46.3); Red Blood Cell Count 3.79 M/mm3 (4.30-5.90); White Blood Cell Count 7.59 K/mm3 (4.00-11.30)
[2021-02-15 14:28] LABS: International Normalized Ratio 1.01; Prothrombin Time Results 10.9 Sec (9.7-11.5)
--- NOTE | 2021-02-15 17:33 | NUR ---
PT ATE DINNER, UP GETTING DRESSED AT THIS TIME. DISCHARGE GONE OVER WITH PT, VERBALIZES UNDERSTANDING.
--- NOTE | 2021-02-15 17:54 | NUR ---
PT DRESSED, DISCHARGE GONE OVER AGAIN WITH PT. SALINE LOCK REMOVED WITH CATHETER INTACT. TR BAND REMOVED, NO BLEEDING NOTED. CLOTH DOT PLACED TO LEFT RADIAL SITE. ARM SLING PLACED ON LEFT ARM. PT TO PRIVATE VEHICLE PER W/C WITH ONE STAFF.
== END 2021-02-15 22:59 | disposition home or self-care (01) ==
LOC: MHTC 12:48
PROVIDERS: Radiology Diagnostic Radiology
DX: T82.858A Stenosis of other vascular prosthetic devices, implants and grafts, initial encounter (principal); N18.6 End stage renal disease; Y83.2 Surgical operation with anastomosis, bypass or graft as the cause of abnormal reaction of the patient, or of later complication, without mention of misadventure at the time of the procedure; Z99.2 Dependence on renal dialysis
CPT/HCPCS: 36902; 37607; 76937; 85025; 85610; 93005; 93010; 99152; 99153; A9270; C1725; C1769; C1887; C1894; J1644; J2060; J2250; J3010; J7040; Q9967

== ENCOUNTER 2021-05-29 17:17 | Emergency (ER) | payer MEDICARE, OTHER ==
[~2021-05-29] VITALS: Ht 177.8 cm; Wt 83.9 kg
[2021-05-29 17:46] LABS: BASOPHILS ABSOLUTE AUTO 0.05 K/mm3 (0.00-0.23); BASOPHILS PERCENT AUTO 1 % (0-2); EOSINOPHILS ABSOLUTE AUTO 0.12 K/mm3 (0.00-0.68); EOSINOPHILS PERCENT AUTO 1 % (0-6); Hematocrit 32.5 % (37.0-53.0); Hemoglobin 10.3 g/dL (13.5-17.5); IMMATURE GRAN ABSOLUTE AUTO 0.04 K/mm3 (0.00-0.10); IMMATURE GRAN PERCENT AUTO 0 % (0-1); LYMPHOCYTES ABSOLUTE AUTO 1.96 K/mm3 (0.84-5.20); LYMPHOCYTES PERCENT AUTO 21 % (21-46); MONOCYTES ABSOLUTE AUTO 0.82 K/mm3 (0.16-1.47); MONOCYTES PERCENT AUTO 9 % (4-13); Mean Corpuscular HGB 29.8 pg (26.0-34.0); Mean Corpuscular HGB Conc 31.7 g/dL (31.5-36.5); Mean Corpuscular Volume 94 fL (80-100); Mean Platelet Volume 9.1 fL (9.1-12.4); NEUTROPHILS ABSOLUTE AUTO 6.23 K/mm3 (1.96-9.15); NEUTROPHILS PERCENT AUTO 68 % (41-73); Platelet Count 293 K/mm3 (150-400); RDW Coefficient Variation 14.6 % (11.7-14.2); RDW Standard Deviation 50.5 fL (35.1-46.3); Red Blood Cell Count 3.46 M/mm3 (4.30-5.90); White Blood Cell Count 9.22 K/mm3 (4.00-11.30)
[2021-05-29 18:07] LABS: International Normalized Ratio 1.06; Prothrombin Time Results 11.4 Sec (9.7-11.5)
[2021-05-29 18:16] LABS: Alanine Aminotransfer (ALT/SGP 19 U/L (12-78); Albumin, Blood 3.6 g/dL (3.4-5.0); Albumin/Globulin Ratio 0.7 (0.8-1.8); Alk Phos 72 U/L (50-136); Anion Gap 8 mmol/L (6-16); Aspartate Aminotrans (AST/SGOT 10 U/L (12-37); Bilirubin, Total 0.5 mg/dL (0.1-1.0); Blood Urea Nitrogen 56 mg/dL (8-24); Bun/Creatinine Ratio 8.2 (12.0-20.0); CO2, Blood 27 mmol/L (21-32); Calcium, Blood 9.7 mg/dL (8.5-10.1); Chloride, Blood 101 mmol/L (98-108); Creatinine, Blood 6.83 mg/dL (0.60-1.20); Globulin, Blood 4.9 g/dL (2.2-4.0); Glomerular Filtration Rate 10 (60-); Glucose, Blood 89 mg/dL (70-99); Magnesium, Blood 2.7 mg/dL (1.6-2.4); Potassium, Blood 4.2 mmol/L (3.5-5.5); Sodium, Blood 136 mmol/L (136-145); Total Protein, Blood 8.5 g/dL (6.4-8.2); Troponin I <0.015 ng/mL (0.000-0.040)
[2021-05-29] MEDS ORDERED: LIDOCAINE1 EAC1 TOP (20:15)
[2021-05-29] MEDS ORDERED: CEFP200 PO (20:15)
[2021-05-29] MEDS ORDERED: AZIT250 PO (20:15)
== END 2021-05-29 20:30 | disposition home or self-care (01) ==
LOC: ER 17:17
PROVIDERS: Emergency Medicine Emergency Medical Services
DX: J18.9 Pneumonia, unspecified organism (principal); I12.0 Hypertensive chronic kidney disease with stage 5 chronic kidney disease or end stage renal disease; N18.6 End stage renal disease; E78.5 Hyperlipidemia, unspecified; Z86.711 Personal history of pulmonary embolism; Z88.0 Allergy status to penicillin; Z88.2 Allergy status to sulfonamides; Z88.8 Allergy status to other drugs, medicaments and biological substances; Z88.1 Allergy status to other antibiotic agents; Z79.899 Other long term (current) drug therapy; Z79.01 Long term (current) use of anticoagulants; Z79.02 Long term (current) use of antithrombotics/antiplatelets; Z87.891 Personal history of nicotine dependence; Z99.2 Dependence on renal dialysis
CPT/HCPCS: 71045; 71260; 80053; 83735; 84484; 85025; 85610; 93005; 93010; 96374; 99285-25; A9270; J3010; Q9967

== ENCOUNTER → 2021-08-02 | Outpatient (CLI) | payer MEDICARE, OTHER ==
[~2021-08-02] MED LIST changes: +AZIT250 PO; +CEFP200 PO; +LIDOCAINE1 EAC1 TOP
[2021-08-02 20:13] LABS: BASOPHILS ABSOLUTE AUTO 0.05 K/mm3 (0.00-0.23); BASOPHILS PERCENT AUTO 1 % (0-2); EOSINOPHILS PERCENT AUTO 1 % (0-6); Hematocrit 28.3 % (37.0-53.0); Hemoglobin 8.7 g/dL (13.5-17.5); IMMATURE GRAN ABSOLUTE AUTO 0.09 K/mm3 (0.00-0.10); IMMATURE GRAN PERCENT AUTO 1 % (0-1); LYMPHOCYTES ABSOLUTE AUTO 1.62 K/mm3 (0.84-5.20); LYMPHOCYTES PERCENT AUTO 20 % (21-46); MONOCYTES ABSOLUTE AUTO 0.69 K/mm3 (0.16-1.47); MONOCYTES PERCENT AUTO 8 % (4-13); Mean Corpuscular HGB 28.1 pg (26.0-34.0); Mean Corpuscular HGB Conc 30.7 g/dL (31.5-36.5); Mean Corpuscular Volume 91 fL (80-100); Mean Platelet Volume 9.5 fL (9.1-12.4); NEUTROPHILS ABSOLUTE AUTO 5.74 K/mm3 (1.96-9.15); NEUTROPHILS PERCENT AUTO 69 % (41-73); Platelet Count 343 K/mm3 (150-400); RDW Coefficient Variation 15.9 % (11.7-14.2); RDW Standard Deviation 53.1 fL (35.1-46.3); White Blood Cell Count 8.29 K/mm3 (4.00-11.30)
[2021-08-02 20:39] LABS: Magnesium, Blood 2.6 mg/dL (1.6-2.4)
[2021-08-02 20:41] LABS: Albumin, Blood 2.9 g/dL (3.4-5.0); Albumin/Globulin Ratio 0.6 (0.8-1.8); Bilirubin, Total 0.3 mg/dL (0.1-1.0); Bun/Creatinine Ratio 8.9 (12.0-20.0); Calcium, Blood 9.9 mg/dL (8.5-10.1); Creatinine, Blood 4.97 mg/dL (0.60-1.20); Globulin, Blood 5.1 g/dL (2.2-4.0); Potassium, Blood 4.3 mmol/L (3.5-5.5)
== END | disposition home or self-care (01) ==
LOC: LAB SHORT 19:05
PROVIDERS: Physician Assistant
DX: E83.41 Hypermagnesemia (principal); R50.9 Fever, unspecified
CPT/HCPCS: 80053; 83735; 85025

== ENCOUNTER 2021-09-01 06:05 | Day surgery (SDC) | payer MEDICARE, OTHER ==
[~2021-09-01] VITALS: Ht 175.3 cm; Wt 84.5 kg
--- NOTE | 2021-09-01 09:00 | NUR ---
TO RECOVERY ROOM VIA [facility]. DRESSING DRY AND INTACT.
--- NOTE | 2021-09-01 09:44 | NUR ---
DRESSING CHANGED BY DR. DUMONT.
--- NOTE | 2021-09-01 10:15 | NUR ---
DRESSING FRO DISCHARGE. IV REMOVED INTACT. 2X2,COBAN AND MANUAL PRESSURE HELD.
--- NOTE | 2021-09-01 10:30 | NUR ---
DISCHARGED HOME VIA WHEELCHAIR. FRIEND DRIVING.
== END 2021-09-01 11:40 | disposition home or self-care (01) ==
LOC: MHTC 06:05
DX: N18.6 End stage renal disease (principal); B95.2 Enterococcus as the cause of diseases classified elsewhere; Z88.2 Allergy status to sulfonamides; Z88.0 Allergy status to penicillin; Z88.1 Allergy status to other antibiotic agents; Z79.899 Other long term (current) drug therapy
CPT/HCPCS: 36558; 76937; 77001; 99152; 99153; C1750; C1769; C1894; J1644; J2250; J3010; J7030

== ENCOUNTER 2021-11-06 21:27 | Inpatient (IN) | payer MEDICARE, OTHER ==
[~2021-11-06] VITALS: Ht 175.3 cm; Wt 80.0 kg
[2021-11-06 21:55] LABS: BASOPHILS ABSOLUTE AUTO 0.02 K/mm3 (0.00-0.23); BASOPHILS PERCENT AUTO 0 % (0-2); EOSINOPHILS ABSOLUTE AUTO 0.03 K/mm3 (0.00-0.68); EOSINOPHILS PERCENT AUTO 0 % (0-6); Hematocrit 39.7 % (37.0-53.0); Hemoglobin 12.9 g/dL (13.5-17.5); IMMATURE GRAN ABSOLUTE AUTO 0.06 K/mm3 (0.00-0.10); IMMATURE GRAN PERCENT AUTO 1 % (0-1); LYMPHOCYTES ABSOLUTE AUTO 0.61 K/mm3 (0.84-5.20); LYMPHOCYTES PERCENT AUTO 7 % (21-46); MONOCYTES ABSOLUTE AUTO 0.99 K/mm3 (0.16-1.47); MONOCYTES PERCENT AUTO 11 % (4-13); Mean Corpuscular HGB 29.7 pg (26.0-34.0); Mean Corpuscular HGB Conc 32.5 g/dL (31.5-36.5); Mean Corpuscular Volume 91 fL (80-100); Mean Platelet Volume 9.6 fL (9.1-12.4); NEUTROPHILS ABSOLUTE AUTO 6.99 K/mm3 (1.96-9.15); NEUTROPHILS PERCENT AUTO 80 % (41-73); Platelet Count 169 K/mm3 (150-400); RDW Coefficient Variation 15.9 % (11.7-14.2); RDW Standard Deviation 53.6 fL (35.1-46.3); Red Blood Cell Count 4.35 M/mm3 (4.30-5.90)
[2021-11-06 22:13] LABS: Albumin, Blood 3.3 g/dL (3.4-5.0); Albumin/Globulin Ratio 0.7 (0.8-1.8); Bilirubin, Total 0.5 mg/dL (0.1-1.0); Bun/Creatinine Ratio 9.4 (12.0-20.0); Calcium, Blood 9.8 mg/dL (8.5-10.1); Creatinine, Blood 6.9 mg/dL (0.60-1.20); Globulin, Blood 4.6 g/dL (2.2-4.0); Potassium, Blood 4.9 mmol/L (3.5-5.5); Total Protein, Blood 7.9 g/dL (6.4-8.2)
[2021-11-07 00:59] LABS: Source, Urine Clean Catch
[2021-11-07 01:04] LABS: Bilirubin, Urine Neg (Neg); Blood, Urine 5+ (Neg); Glucose Qualitative, Urine Neg (Neg); Ketones, Urine Neg (Neg); Leukocyte Esterase, Urine Neg (Neg); Nitrite, Urine Neg (Neg); Protein, Urine 4+ (Neg); Urobilinogen, Urine NORM (Normal)
[2021-11-07 01:15] LABS: Appearance, Urine Clear (Clear); Color, Urine Yellow (P-Yellow)
[2021-11-07 01:19] LABS: Amorphous Light (0-Heavy); Bacteria Not Seen /hpf; Red Blood Cells, Urine TNTC /hpf (0-2); Squamous Epithelial Cells Rare /hpf (Few); White Blood Cells, Urine Rare /hpf (0-5)
--- NOTE | 2021-11-07 03:55 | NUR ---
ADMISSION: PATIENT IS RECIEVED FROM ER, ORIENTED TO ROOM AND CALL WEST VSS, TIGHT COUGH OBSERVED. PATIENT REPORTS HEMOPTOSIS AT HOME BUT NONE SINCE COMING TO HOSPITAL TONIGHT. ON RA SATS IS 98%. PATIENT REPORTS CHEST PAIN 8-9/10 WITH PAIN INCREASING WITH COUGH. PATIENT REPORTS N/V AT HOME ONLY WHEN TRYING TO EAT FOOD AND IS REQUESTING FLUIDS, ORDER IS NPO AT THIS TIME. CALL IS PLACED TO DR POSADA FOR A REQUEST FOR PAIN MEDICATION AND DIET.
--- NOTE | 2021-11-07 07:36 | NUR ---
SHIFT SUMMARY: DR POSADA REFERRED WINDOWS SYSTEMS ADMIN TO DR SAWYER FOR ORDERS. ORDERS FOR RENAL DIET, TYLENOL FOR PAIN, TESSELON PEARLS FOR COUGH. LUNG SOUNDS ARE TIGHT AND DIMINISHED ON LEFT AND CLEAR WITH DIM BASE ON RIGHT. SATS ARE IN THE HIGH 90'S ON ROOM AIR. CONT. PULSE OX IS IN PLACE. INDEPENDANT TO THE BATHROOM WITH STEADY GAIT. TELI IS IN PLACE, NSR 80-90'S. PATIENT HAD A LOOSE STOOL THIS AM.
[2021-11-07 16:59] LABS: Vancomycin, Trough 13.2 ug/mL (5.0-10.0)
--- NOTE | 2021-11-07 19:06 | NUR ---
SHIFT SUMMARY- PT IS A/O, PLESANT AND COOPERATIVE. HE IS EATING AND DRINKING WELL. HE RECIEVED DIALYSIS THIS SHIFT. HE WAS PAINFUL THIS SHIFT AND RECIEVED PRN PAIN MEDICATIONS. HE AMBULATES INDEPENDELTLY. HIS BED IS IN THE LOW POSITION AND CALL LIGHT IS WITHIN REACH
--- NOTE | 2021-11-07 19:31 | NUR ---
AWAKE, SITTING ON BED. IV FLUSHED AFTER VANCO INFUSED. VOICED FEELING BETTER THAN HE FIRST CAME IN. CALL LIGHT IN REACH
[2021-11-08 05:01] LABS: BASOPHILS ABSOLUTE AUTO 0.01 K/mm3 (0.00-0.23); BASOPHILS PERCENT AUTO 0 % (0-2); EOSINOPHILS ABSOLUTE AUTO 0.01 K/mm3 (0.00-0.68); EOSINOPHILS PERCENT AUTO 0 % (0-6); Hematocrit 38.7 % (37.0-53.0); Hemoglobin 12.6 g/dL (13.5-17.5); IMMATURE GRAN ABSOLUTE AUTO 0.02 K/mm3 (0.00-0.10); IMMATURE GRAN PERCENT AUTO 0 % (0-1); LYMPHOCYTES ABSOLUTE AUTO 0.83 K/mm3 (0.84-5.20); LYMPHOCYTES PERCENT AUTO 15 % (21-46); MONOCYTES ABSOLUTE AUTO 0.86 K/mm3 (0.16-1.47); MONOCYTES PERCENT AUTO 15 % (4-13); Mean Corpuscular HGB 29.6 pg (26.0-34.0); Mean Corpuscular HGB Conc 32.6 g/dL (31.5-36.5); Mean Corpuscular Volume 91 fL (80-100); Mean Platelet Volume 10.1 fL (9.1-12.4); NEUTROPHILS ABSOLUTE AUTO 3.86 K/mm3 (1.96-9.15); NEUTROPHILS PERCENT AUTO 69 % (41-73); Platelet Count 190 K/mm3 (150-400); RDW Coefficient Variation 15.5 % (11.7-14.2); RDW Standard Deviation 51.6 fL (35.1-46.3); Red Blood Cell Count 4.25 M/mm3 (4.30-5.90); White Blood Cell Count 5.59 K/mm3 (4.00-11.30)
[2021-11-08 05:32] LABS: Albumin, Blood 3.2 g/dL (3.4-5.0); Anion Gap 9 mmol/L (6-16); Blood Urea Nitrogen 53 mg/dL (8-24); Bun/Creatinine Ratio 9.7 (12.0-20.0); CO2, Blood 27 mmol/L (21-32); Calcium, Blood 9.6 mg/dL (8.5-10.1); Chloride, Blood 103 mmol/L (98-108); Creatinine, Blood 5.48 mg/dL (0.60-1.20); Glomerular Filtration Rate 12 (60-); Glucose, Blood 122 mg/dL (70-99); Magnesium, Blood 2.6 mg/dL (1.6-2.4); Phosphorus, Blood 5.4 mg/dL (2.5-4.9); Potassium, Blood 4.4 mmol/L (3.5-5.5); Sodium, Blood 139 mmol/L (136-145); Vancomycin, Random 37.9 ug/mL
--- NOTE | 2021-11-08 05:46 | NUR ---
BP ELEVATED. NOTIFIED. EXTRA DOSE OF LISINOPRIL ORDERED. SEE MAR/ DOC
--- NOTE | 2021-11-08 06:01 | NUR ---
JOURNEYMAN ELECTRICIAN PV INSTALLER SUMMARY HAS BEEN RESTING QUIETLY WITH OCCASIONAL INTERRUPTIONS THROUGHOUT SHIFT. VOICED SOME NIGHT SWEATS - VOICED USUAL OCURRENCE. MED TELE SR. BP ELEVATED. MD WAS NOTIFIED. EXTRA DOSE OF LISINOPRIL WAS ORDERED AND GIVEN. PT VOICED HAS HAD HTN SINCE "[age] YEARS OLD". CALL LIGHT IN REACH.
--- NOTE | 2021-11-08 19:38 | NUR ---
SHIFT SUMMARY- PT IS A/O, PLESANT AND COOPERATIVE. HE IS EATING AND DRINKING WELL. HE IS RECIEVING IV ABX. CONSULTATION CALLED TO DR. TOVAR, HE SAW THE PT THIS EVENING HE WILL PLAN ON REMOVING THE PERMACATH TOMORROW. THEY WILL USE THE FISTULA FOR DIALYSIS AT THIS TIME. ANXIETY MEDICATIONS ORDERED. PT WAS ANXIOUS TO GO HOME BUT AGREED TO STAY FOR PROCEDURE TOMORROW. HE IS INDEPENDENT IN THE ROOM.
[2021-11-09 04:57] LABS: BASOPHILS ABSOLUTE AUTO 0.03 K/mm3 (0.00-0.23); BASOPHILS PERCENT AUTO 1 % (0-2); EOSINOPHILS ABSOLUTE AUTO 0.02 K/mm3 (0.00-0.68); EOSINOPHILS PERCENT AUTO 0 % (0-6); Hematocrit 36.2 % (37.0-53.0); Hemoglobin 11.4 g/dL (13.5-17.5); IMMATURE GRAN ABSOLUTE AUTO 0.03 K/mm3 (0.00-0.10); IMMATURE GRAN PERCENT AUTO 1 % (0-1); LYMPHOCYTES ABSOLUTE AUTO 1.29 K/mm3 (0.84-5.20); LYMPHOCYTES PERCENT AUTO 21 % (21-46); MONOCYTES ABSOLUTE AUTO 0.78 K/mm3 (0.16-1.47); MONOCYTES PERCENT AUTO 13 % (4-13); Mean Corpuscular HGB 28.9 pg (26.0-34.0); Mean Corpuscular HGB Conc 31.5 g/dL (31.5-36.5); Mean Corpuscular Volume 92 fL (80-100); Mean Platelet Volume 9.8 fL (9.1-12.4); NEUTROPHILS ABSOLUTE AUTO 3.91 K/mm3 (1.96-9.15); NEUTROPHILS PERCENT AUTO 65 % (41-73); Platelet Count 174 K/mm3 (150-400); RDW Coefficient Variation 15.1 % (11.7-14.2); RDW Standard Deviation 50.5 fL (35.1-46.3); Red Blood Cell Count 3.94 M/mm3 (4.30-5.90); White Blood Cell Count 6.06 K/mm3 (4.00-11.30)
[2021-11-09 05:34] LABS: Albumin, Blood 2.9 g/dL (3.4-5.0); Anion Gap 10 mmol/L (6-16); Blood Urea Nitrogen 76 mg/dL (8-24); Bun/Creatinine Ratio 12.2 (12.0-20.0); CO2, Blood 23 mmol/L (21-32); Calcium, Blood 9.4 mg/dL (8.5-10.1); Chloride, Blood 105 mmol/L (98-108); Creatinine, Blood 6.23 mg/dL (0.60-1.20); Glomerular Filtration Rate 11 (60-); Glucose, Blood 115 mg/dL (70-99); Magnesium, Blood 2.6 mg/dL (1.6-2.4); Phosphorus, Blood 5.7 mg/dL (2.5-4.9); Potassium, Blood 4.5 mmol/L (3.5-5.5); Sodium, Blood 138 mmol/L (136-145)
--- NOTE | 2021-11-09 06:19 | NUR ---
SHIFT SUMMARY PATIENT ALERT AND ORIENTED. HAD NO COMPLAINTS OF PAIN OR SHORTNESS OF BREATH. NO ACUTE ISSUES NOTED OVERNIGHT. CALL LIGHT WITHIN REACH. REPORT GIVEN TO ONCOMING RN.
[2021-11-09 13:20] LABS: Vancomycin, Random 13.6 ug/mL
[2021-11-09] MEDS ORDERED: BENZ100A PO (17:44)
[2021-11-09] MEDS ORDERED: Acetaminophen650 M1 PO (17:45)
[2021-11-09] MEDS ORDERED: LACT PO (18:07)
[2021-11-09] MEDS ORDERED: PRED20 PO (18:09)
--- NOTE | 2021-11-09 18:39 | NUR ---
SHIFT SUMMARY PT HAD HIS PORTACATH REMOVED THIS AFTERNNON AND TOLERATED THE PROCEDURE WELL. HE WILL BE RECIEVING HIS LAST VANCO BEFORE HE IS DISCHARGED THIS EVENING. ALL OF HIS PAPERWORK HAS BEEN COMPLETED AND THE DISCHARGE PAPERWORK GONE OVER. HIS ABX THERAPY WILL BE CONTINUED DURING HIS DIALYSIS TREATMENT. ALL THAT NEEDS TO BE DONE IS TO REMOVED IV ACCESS BEFORE DC. WILL CONTINUE TO CHARGE.
== END 2021-11-09 19:05 | disposition home or self-care (01) | DRG 314 ==
LOC: ER 21:27 → MEDS 11-07 01:26
PROVIDERS: Family Medicine; Internal Medicine Nephrology; Physician Assistant; ADMIT Internal Medicine
PROC: 5A1D70Z Performance of Urinary Filtration, Intermittent, Less than 6 Hours Per Day (ICD-10-PCS; principal; 2021-11-07)
DX: T82.7XXA Infection and inflammatory reaction due to other cardiac and vascular devices, implants and grafts, initial encounter (principal); J18.9 Pneumonia, unspecified organism; I26.90 Septic pulmonary embolism without acute cor pulmonale; N18.6 End stage renal disease; A41.01 Sepsis due to Methicillin susceptible Staphylococcus aureus; I12.0 Hypertensive chronic kidney disease with stage 5 chronic kidney disease or end stage renal disease; Z20.822 Contact with and (suspected) exposure to COVID-19; K21.9 Gastro-esophageal reflux disease without esophagitis; F25.9 Schizoaffective disorder, unspecified; E78.5 Hyperlipidemia, unspecified; D63.1 Anemia in chronic kidney disease; E83.39 Other disorders of phosphorus metabolism; E86.9 Volume depletion, unspecified; M10.9 Gout, unspecified; Z88.0 Allergy status to penicillin; Z88.2 Allergy status to sulfonamides; Z88.1 Allergy status to other antibiotic agents; Z88.8 Allergy status to other drugs, medicaments and biological substances; Z90.89 Acquired absence of other organs; Z99.2 Dependence on renal dialysis; Z79.01 Long term (current) use of anticoagulants; Z79.899 Other long term (current) drug therapy; Z79.02 Long term (current) use of antithrombotics/antiplatelets; Z98.890 Other specified postprocedural states; Z91.15 Patient's noncompliance with renal dialysis; Y71.8 Miscellaneous cardiovascular devices associated with adverse incidents, not elsewhere classified
CPT/HCPCS: 0241U; 36415; 71045; 71046; 71260; 80053; 80069; 80202; 81001; 83605; 83735; 85025; 85651; 86140; 87040; 87077; 87147; 87186; 93005; 93010; 93306; 94762; 96365; 96366; 96374; 96375; 99284-25; 99285-25; A9270; J0696; J1200; J1650; J3370; J7030; J7050; J7512; Q9967

== ENCOUNTER 2022-05-29 14:25 | Inpatient (IN) | payer MEDICARE, OTHER ==
[~2022-05-29] VITALS: Ht 175.3 cm; Wt 81.7 kg
[~2022-05-29 14:25] MED LIST changes: +Acetaminophen650 M1 PO; +BENZ100A PO; +LACT PO
[2022-05-29 15:33] LABS: BASOPHILS ABSOLUTE AUTO 0.04 K/mm3 (0.00-0.23); BASOPHILS PERCENT AUTO 0 % (0-2); EOSINOPHILS ABSOLUTE AUTO 0.04 K/mm3 (0.00-0.68); EOSINOPHILS PERCENT AUTO 0 % (0-6); Hematocrit 37.6 % (37.0-53.0); Hemoglobin 12.4 g/dL (13.5-17.5); IMMATURE GRAN ABSOLUTE AUTO 0.07 K/mm3 (0.00-0.10); IMMATURE GRAN PERCENT AUTO 1 % (0-1); LYMPHOCYTES PERCENT AUTO 8 % (21-46); MONOCYTES ABSOLUTE AUTO 1.08 K/mm3 (0.16-1.47); MONOCYTES PERCENT AUTO 7 % (4-13); Mean Corpuscular HGB 31.4 pg (26.0-34.0); Mean Corpuscular Volume 95 fL (80-100); Mean Platelet Volume 9.2 fL (9.1-12.4); NEUTROPHILS ABSOLUTE AUTO 12.32 K/mm3 (1.96-9.15); NEUTROPHILS PERCENT AUTO 84 % (41-73); Platelet Count 255 K/mm3 (150-400); RDW Coefficient Variation 13.2 % (11.7-14.2); RDW Standard Deviation 46.9 fL (35.1-46.3); Red Blood Cell Count 3.95 M/mm3 (4.30-5.90); White Blood Cell Count 14.65 K/mm3 (4.00-11.30)
[2022-05-29 16:04] LABS: Albumin, Blood 3.3 g/dL (3.4-5.0); Albumin/Globulin Ratio 0.8 (0.8-1.8); Bilirubin, Total 0.5 mg/dL (0.1-1.0); Bun/Creatinine Ratio 7.7 (12.0-20.0); Calcium, Blood 9.9 mg/dL (8.5-10.1); Creatinine, Blood 7.28 mg/dL (0.60-1.20); Globulin, Blood 4.3 g/dL (2.2-4.0); Potassium, Blood 4.3 mmol/L (3.5-5.5); Total Protein, Blood 7.6 g/dL (6.4-8.2)
[2022-05-29 19:24] LABS: Source, Urine Clean Catch
[2022-05-29 19:29] LABS: Bilirubin, Urine Neg (Neg); Blood, Urine 3+ (Neg); Color, Urine Yellow (P-Yellow); Glucose Qualitative, Urine Neg (Neg); Ketones, Urine Neg (Neg); Leukocyte Esterase, Urine Neg (Neg); Nitrite, Urine Neg (Neg); Protein, Urine 4+ (Neg); Urobilinogen, Urine NORM (Normal)
[2022-05-29 19:44] LABS: Appearance, Urine Hazy (Clear)
[2022-05-29 19:45] LABS: Amorphous Light (0-Heavy); Bacteria Mod /hpf; Mucus Light (0-Heavy); Squamous Epithelial Cells Rare /hpf (Few)
[2022-05-29 19:46] LABS: Granular Casts 0-2 /lpf (0)
[2022-05-29 23:27] LABS: International Normalized Ratio 1.13; Prothrombin Time Results 11.8 Sec (9.7-11.5)
[2022-05-30] MEDS ORDERED: CALCIUM ACETAT667 M2 PO (00:54)
--- NOTE | 2022-05-30 04:46 | NUR ---
SHIFT SUMMARY 31 YR M ADMITTED AT APPROX 0130 THIS A.M. FROM THE ED FOR DIVERTICULITIS W/ ABSCESS. PT STATES HE HAS A LONG HX OF DIVERTICULITIS AND KIDNEY DISEASE. HE STATED HE WAS IN ALOT OF PAIN AND WAS MEDICATED PER EMAR. HE WAS ABLE TO EAT AND HOLD DOWN 1/2 A ROAST BEEF SANDWICH AND STATED THAT IT WAS THE FIRST FOOD HE HAS EATEN IN AT LEAST A COUPLE OF DAYS. HE HAS HAD NO C/O N/V. HE DOES C/O BM URGENCY AND FREQUENCY AND STATES THAT IT IS VERY PAINFUL TO "GO". HE IS INDEPENDANT AND AMBULATORY IN THE ROOM AND IS VERY PLEASANT AND COOPERATIVE WITH CARE.
[2022-05-30 05:32] LABS: BASOPHILS ABSOLUTE AUTO 0.04 K/mm3 (0.00-0.23); BASOPHILS PERCENT AUTO 0 % (0-2); EOSINOPHILS ABSOLUTE AUTO 0.12 K/mm3 (0.00-0.68); EOSINOPHILS PERCENT AUTO 1 % (0-6); Hematocrit 32.9 % (37.0-53.0); Hemoglobin 10.8 g/dL (13.5-17.5); IMMATURE GRAN ABSOLUTE AUTO 0.05 K/mm3 (0.00-0.10); IMMATURE GRAN PERCENT AUTO 0 % (0-1); LYMPHOCYTES ABSOLUTE AUTO 1.26 K/mm3 (0.84-5.20); LYMPHOCYTES PERCENT AUTO 10 % (21-46); MONOCYTES ABSOLUTE AUTO 1.24 K/mm3 (0.16-1.47); MONOCYTES PERCENT AUTO 9 % (4-13); Mean Corpuscular HGB 31.5 pg (26.0-34.0); Mean Corpuscular HGB Conc 32.8 g/dL (31.5-36.5); Mean Corpuscular Volume 96 fL (80-100); Mean Platelet Volume 9.1 fL (9.1-12.4); NEUTROPHILS ABSOLUTE AUTO 10.46 K/mm3 (1.96-9.15); NEUTROPHILS PERCENT AUTO 79 % (41-73); Platelet Count 223 K/mm3 (150-400); RDW Coefficient Variation 13.4 % (11.7-14.2); RDW Standard Deviation 47.4 fL (35.1-46.3); Red Blood Cell Count 3.43 M/mm3 (4.30-5.90); White Blood Cell Count 13.17 K/mm3 (4.00-11.30)
[2022-05-30 05:54] LABS: Albumin, Blood 2.6 g/dL (3.4-5.0); Albumin/Globulin Ratio 0.6 (0.8-1.8); Bilirubin, Total 0.6 mg/dL (0.1-1.0); Bun/Creatinine Ratio 8.1 (12.0-20.0); Calcium, Blood 8.8 mg/dL (8.5-10.1); Creatinine, Blood 7.5 mg/dL (0.60-1.20); Globulin, Blood 4.1 g/dL (2.2-4.0); Magnesium, Blood 2.1 mg/dL (1.6-2.4); Phosphorus, Blood 6.5 mg/dL (2.5-4.9); Total Protein, Blood 6.7 g/dL (6.4-8.2)
--- NOTE | 2022-05-30 08:11 | NUR ---
KIRK FROM [facility] CALLED. STATES DR AL REQUEST CHANGE IVF N/S TO 50 / HR. CALLED DR AL. ORDER IS FOR 50/HR CONTINUOUS UNTIL EATING NORMALLY. PT NPO AT THIS TIME PER DR DORSEY.
--- NOTE | 2022-05-30 18:06 | NUR ---
PT IS A/O, PLESANT AND COOPERATIVE. HE IS NPO FOR BOWEL REST. HE IS RECIEVING PRN IV PAIN MEDICATION, SWITCHED FROM FENTANYL TO DUALIDID THIS SHIFT AND PT REPORTS THAT IS WORKING BETTER TO CONTROL HIS PAIN. HE HAS SLEPT INTERMITENTLY THROUGHOUT THIS SHIFT. HE IS INTEPENDENT TO THE RESTROOM. HIS BED IS IN THE LOW POSITION [facility] DIALYSIS NURSE WILL TOUCH BASE WITH DR. AL ABOUT DIALYSIS
--- NOTE | 2022-05-30 19:10 | NUR ---
AGREE WITH RN NOTES
--- NOTE | 2022-05-31 03:53 | NUR ---
31 YR M ADMITTED ON 05/29/22 FOR DIVERTICULITIS WITH ABSCESS. FULL CODE. NO ACUTE CHANGES THIS SHIFT. PT STATES THAT THE DILAUDID IS WORKING BETTER AND LONGER THAN THE FENTNYL WHEN BEING GIVEN THE MAX DOSE OF 1 MG. HE IS STILL C/O DIARRHEA WITH URGENCY AND PAIN. HE HAS BEEN NPO PER DR. MEZA SINCE LAST SHIFT AND STATES THAT HE IS NOW GETTING HUNGRY AND CAN FEEL HIS IV FLUIDS GOING THROUGH HIM.
[2022-05-31 05:39] LABS: Hematocrit 33.1 % (37.0-53.0); Hemoglobin 10.7 g/dL (13.5-17.5)
[2022-05-31 06:19] LABS: Magnesium, Blood 2.2 mg/dL (1.6-2.4)
[2022-05-31 06:39] LABS: Albumin, Blood 2.7 g/dL (3.4-5.0); Anion Gap 13 mmol/L (6-16); Blood Urea Nitrogen 62 mg/dL (8-24); Bun/Creatinine Ratio 7.3 (12.0-20.0); CO2, Blood 17 mmol/L (21-32); Calcium, Blood 9.1 mg/dL (8.5-10.1); Chloride, Blood 107 mmol/L (98-108); Creatinine, Blood 8.45 mg/dL (0.60-1.20); Glomerular Filtration Rate 8 (60-); Glucose, Blood 75 mg/dL (70-99); Phosphorus, Blood 6.3 mg/dL (2.5-4.9); Potassium, Blood 4.6 mmol/L (3.5-5.5); Sodium, Blood 137 mmol/L (136-145)
--- NOTE | 2022-05-31 06:49 | NUR ---
GOT A CRITICAL VALUE FROM LAB AT APPROX 0730 FOR CREATNINE LEVEL OF 8.45. ATTEMPTED TO CALL DR. POSADA BUT NO ANSWER. SPOKE W/ DR. AL IN PASSING AND INFORMED HIM OF LAB VALUE.
[2022-05-31 10:10] LABS: HBSAG SCREEN Negative (Negative); HCV AB <0.1 (0.0-0.9); HEP A AB, IGM Negative (Negative); HEP B CORE AB, IGM Negative (Negative)
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
--- NOTE | 2022-05-31 14:22 | NUR ---
Update to Dr. Jackson regarding incident and patient's response to MAD Consult.
--- NOTE | 2022-05-31 18:16 | NUR ---
SHIFT SUMMARY- PT IS A/O, INDEPENDENT IN THE ROOM. HE WENT TO DIALYSIS TODAY. WHEN HE CAME BACK HIS PAIN WAS ELEVATED. HE WAS MEDICATED PER MAR AND HIS PAIN IS CURRENTLY IMPROVED. HE IS RECIEVING PPN. HE REPORTS NEW PAIN IN THE RLQ. HE REQUESTED A SHOWER THIS EVENING. HIS BED IS IN THE LOW POSITION AND CALL LIGHT IS WITHIN REACH
[2022-06-01 06:40] LABS: Hematocrit 33.7 % (37.0-53.0); Hemoglobin 11.1 g/dL (13.5-17.5); Mean Corpuscular HGB 31.4 pg (26.0-34.0); Mean Corpuscular HGB Conc 32.9 g/dL (31.5-36.5); Mean Corpuscular Volume 96 fL (80-100); Mean Platelet Volume 9.5 fL (9.1-12.4); Platelet Count 252 K/mm3 (150-400); RDW Coefficient Variation 13.2 % (11.7-14.2); RDW Standard Deviation 46.8 fL (35.1-46.3); Red Blood Cell Count 3.53 M/mm3 (4.30-5.90); White Blood Cell Count 12.38 K/mm3 (4.00-11.30)
--- NOTE | 2022-06-01 06:54 | NUR ---
GAS SYSTEMS WORKER SUMMARY A/OX4. PT INDEPENDENT IN THE ROOM. USES CALL LIGHT APPROPRIATELY. PT WAS PLEASANT AND COOPERATIVE W/CARE T/O THE NIGHT. PT IS NPO W/ICE CHIPS/SMALL SIPS OF WATER; PT IS TOLERATING. PT IS RECVNG CONT TPN IV NUTRITION; TITRATED UP TO 70 MLS HR. PT CONTINUES TO C/O ABDOMINAL PAIN AND BRIEF EPISODES OF NAUSEA. LEFT ARM FISTULA;NO BP. SYS BP HAS BEEN ELEVATED; SYS IN 180'S. PT IS RCVNG HYDROMORPHONE 1MG Q4; PT HAS REQUESTED MEDS AT REGULAR INTERVALS AND REPORTS RELIEF. RT UPPER ARM POWER GLIDE PLACE; LINE DRAWS. CALL LIGHT IN REACH.
[2022-06-01 06:55] LABS: Albumin, Blood 2.7 g/dL (3.4-5.0); Anion Gap 10 mmol/L (6-16); Blood Urea Nitrogen 35 mg/dL (8-24); Bun/Creatinine Ratio 5.9 (12.0-20.0); CO2, Blood 26 mmol/L (21-32); Calcium, Blood 9.8 mg/dL (8.5-10.1); Chloride, Blood 100 mmol/L (98-108); Creatinine, Blood 5.96 mg/dL (0.60-1.20); Glomerular Filtration Rate 12 (60-); Glucose, Blood 103 mg/dL (70-99); Magnesium, Blood 1.9 mg/dL (1.6-2.4); Potassium, Blood 3.6 mmol/L (3.5-5.5); Sodium, Blood 136 mmol/L (136-145); Triglycerides 250 mg/dL (30-140)
[2022-06-01 07:30] LABS: BAND PERCENT MAN 7 % (0-8); BASOPHILS ABSOLUTE MAN 0.12 K/mm3 (0.00-0.23); BASOPHILS PERCENT MAN 1 % (0-2); EOSINOPHILS ABSOLUTE MAN 0.12 K/mm3 (0.00-0.68); EOSINOPHILS PERCENT MAN 1 % (0-6); LYMPHOCYTES ABSOLUTE MAN 0.99 K/mm3 (0.84-5.20); LYMPHOCYTES PERCENT MAN 8 % (21-46); MONOCYTES ABSOLUTE MAN 0.99 K/mm3 (0.16-1.47); MONOCYTES PERCENT MAN 8 % (4-13); NEUTROPHILS ABSOLUTE MAN 10.15 K/mm3 (1.96-9.15); SEG NEUTROPHILS PERCENT MAN 75 % (41-73); TOTAL CELLS COUNTED 100
--- NOTE | 2022-06-01 13:53 | NUR ---
Spiritual Care Visit - Palliative Care Request Pt. is awake in bed and welcomes my visit. Pt. is unsettled by my presence in light of the previous day's events. With a calming presence and empathetic listening, Pts. anxiety began to de-escallate. Pt. displayed evidence of being less defensive and eventually rapport was established. Facilitated a life review and pastoral legal counsel was given. Pt. displayed evidence of engagement and trust. Pt. verbalized gratitude for the spiritual care visit.
--- NOTE | 2022-06-01 18:03 | NUR ---
PATIENT IS ALERT AND ORIENTED AND COOPERATIVE WITH CARE. PATIENT C/O PAIN IN HIS ABDOMEN, MEDICATED PER EMAR. PATIENT STATES ROXICODONE HAS WORKED REALLY WELL FOR HIM TODAY. STARTED ON A CLEAR LIQUID DIET, PATIENT HAS BEEN TAKING IT REALLY SLOW BUT TOLERATING OKAY. VICTORIAN LITERATURE PROFESSOR SPOKE WITH THE PATIENT AND MADE SOME CHANGES. PPN DISCONTINUED BUT VICTORIAN LITERATURE PROFESSOR ASKED THAT WE FINISH THE BAG THAT IS HANGING. NO DIALYSIS TODAY. WILL CONTINUE TO MONITOR
[2022-06-02 06:20] LABS: Hemoglobin 10.7 g/dL (13.5-17.5)
[2022-06-02 06:44] LABS: Albumin, Blood 2.4 g/dL (3.4-5.0); Anion Gap 11 mmol/L (6-16); Blood Urea Nitrogen 51 mg/dL (8-24); Bun/Creatinine Ratio 7.7 (12.0-20.0); CO2, Blood 24 mmol/L (21-32); Chloride, Blood 99 mmol/L (98-108); Creatinine, Blood 6.63 mg/dL (0.60-1.20); Glomerular Filtration Rate 11 (60-); Glucose, Blood 98 mg/dL (70-99); Magnesium, Blood 2.3 mg/dL (1.6-2.4); Phosphorus, Blood 3.8 mg/dL (2.5-4.9); Potassium, Blood 3.6 mmol/L (3.5-5.5); Sodium, Blood 134 mmol/L (136-145)
--- NOTE | 2022-06-02 06:55 | NUR ---
NURSE NOTE/SHIFT SUMMARY: A/OX4, ADLIB THROUGHOUT THE NIGHT. PT HAVING CONTINUED ABDOMINAL THROUGHOUT THE NIGHT. REPORTS APPLYING PRESSURE TO ABDOMINAL HERNIA PROVIDES TEMPORARY PAIN RELIEF. MD NOTIFIED AND APPROVED ABDOMINAL BINDER PLACEMENT FOR COMFORT. PT INTAKING CLEAR LIQUIDS AND TOLERATING WELL. PT APPEARED TO BE AWAKE MOST OF THE NIGHT AND REPORTING ONLY GETTING A COUPLE HOURS OF SLEEP TONIGHT. BLOOD PRESSURE REMAINING MORE ELEVATED TONIGHT- STEPHANE MD GAVE TELEPHONE ORDER TO DECREASE RATE OF PPN TO 50 ML/HR. CALLS APPROPRIATELY, BED IN LOW POSITION, CALL WEST AND BELONGINGS IN REACH.
--- NOTE | 2022-06-02 10:07 | NUR ---
DIALYSIS NOTE VENOUS NEEDLE INFILTRATION 39 MINUTES INTO HD TX. TX DISCONTINUED, BLOOD RETURNED AND ICE APPLIED. MD NOTIFIED AND PLANS TO RUN PT AGAIN TOMORROW ESTABLISHED.
[2022-06-02] MEDS ORDERED: HYDROCODONE-AC1 EA18 PO (15:00)
[2022-06-02] MEDS ORDERED: LACT PO (15:01)
[2022-06-02] MEDS ORDERED: CIPR500 PO (15:03)
[2022-06-02] MEDS ORDERED: METR500 PO (15:04)
--- NOTE | 2022-06-02 17:53 | NUR ---
SHIFT SUMMARY NO ACUTE CHANGES DURING SHIFT. PT ALERT AND ORIENTED, INDEPENDENT IN ROOM. PT TO HD FOR ROUGHLY 1 HR TODAY. CONTINUED PPN, LAST BAG. PT DIET ADVANCED TO LOW FIBER. PLAN FOR HD TOMORROW FOLLOWED BY D/C. WILL CONTINUE TO MONITOR. CALL LIGHT WITHIN REACH.
--- NOTE | 2022-06-03 04:23 | NUR ---
SHIFT SUMMARY: A/OX4, ADLIB IN ROOM AND TURNER. PT APPEARS TO HAVE SIGNIFICANT DECREASE IN ABDOMINAL PAIN COMPARED TO THE PREVIOUS NIGHT. DIFFICULTY SLEEPING REMAINS. PT DID HAVE AN EPISODE OF VOMITING YET REPORTED NO NAUSEA AT THAT TIME. PT REPORTS INCREASED ACID REFLUX- TUMS ADMINISTERED PROVIDING RELIEF. CONTINUED TO CALL APPROPRIATELY, BED IN LOW POSITION, CALL WEST AND BELONGINGS IN REACH.
[2022-06-03 05:17] LABS: Hematocrit 31.1 % (37.0-53.0); Hemoglobin 10.2 g/dL (13.5-17.5)
[2022-06-03 05:38] LABS: Albumin, Blood 2.4 g/dL (3.4-5.0); Anion Gap 12 mmol/L (6-16); Blood Urea Nitrogen 53 mg/dL (8-24); Bun/Creatinine Ratio 8.1 (12.0-20.0); CO2, Blood 25 mmol/L (21-32); Chloride, Blood 102 mmol/L (98-108); Creatinine, Blood 6.54 mg/dL (0.60-1.20); Glomerular Filtration Rate 11 (60-); Glucose, Blood 95 mg/dL (70-99); Magnesium, Blood 2.5 mg/dL (1.6-2.4); Phosphorus, Blood 4.2 mg/dL (2.5-4.9); Potassium, Blood 3.8 mmol/L (3.5-5.5); Sodium, Blood 139 mmol/L (136-145)
[2022-06-03] MEDS ORDERED: CLIN150 PO (14:37)
== END 2022-06-03 14:42 | disposition home or self-care (01) | DRG 871 ==
LOC: ER 14:25 → MEDS 05-30 00:31
PROVIDERS: Family Medicine; Internal Medicine Nephrology; Physician Assistant; Student in an Organized Health Care Education/Training Program; ADMIT Internal Medicine
PROC: 3E03329 Introduction of Other Anti-infective into Peripheral Vein, Percutaneous Approach (ICD-10-PCS; principal; 2022-05-30)
PROC: 5A1D70Z Performance of Urinary Filtration, Intermittent, Less than 6 Hours Per Day (ICD-10-PCS; 2022-06-03)
DX: A41.9 Sepsis, unspecified organism (principal); N18.6 End stage renal disease; K57.20 Diverticulitis of large intestine with perforation and abscess without bleeding; E87.1 Hypo-osmolality and hyponatremia; N17.9 Acute kidney failure, unspecified; I10 Essential (primary) hypertension; Z88.8 Allergy status to other drugs, medicaments and biological substances; Z88.1 Allergy status to other antibiotic agents; Z88.0 Allergy status to penicillin; Z88.2 Allergy status to sulfonamides; M19.90 Unspecified osteoarthritis, unspecified site; E78.5 Hyperlipidemia, unspecified; F25.9 Schizoaffective disorder, unspecified; Z79.899 Other long term (current) drug therapy; Z90.49 Acquired absence of other specified parts of digestive tract; D64.9 Anemia, unspecified; Z87.891 Personal history of nicotine dependence
CPT/HCPCS: 36415; 71045; 74176; 80053; 80069; 80074; 81001; 82947; 83605; 83690; 83735; 84100; 84478; 85014; 85018; 85025; 85610; 85730; 86317; 86850; 86900; 86901; 87040; 87086; 96365; 96375; 96376; 99285-25; A9270; J0360; J0610; J0744; J1170; J1200; J1644; J2405; J2543; J3010; J3475; J3480; J7030; J7120; J7131

== ENCOUNTER 2022-06-14 20:06 | Emergency (ER) | payer MEDICARE, OTHER ==
[~2022-06-14] VITALS: Ht 175.3 cm; Wt 81.7 kg
[~2022-06-14 20:06] MED LIST changes: +CALCIUM ACETAT667 M2 PO; +CIPR500 PO; +CLIN150 PO; +HYDROCODONE-AC1 EA18 PO; +METR500 PO
[2022-06-14 20:36] LABS: BASOPHILS ABSOLUTE AUTO 0.07 K/mm3 (0.00-0.23); BASOPHILS PERCENT AUTO 1 % (0-2); EOSINOPHILS ABSOLUTE AUTO 0.11 K/mm3 (0.00-0.68); EOSINOPHILS PERCENT AUTO 1 % (0-6); Hematocrit 34.4 % (37.0-53.0); Hemoglobin 10.9 g/dL (13.5-17.5); IMMATURE GRAN ABSOLUTE AUTO 0.06 K/mm3 (0.00-0.10); IMMATURE GRAN PERCENT AUTO 1 % (0-1); LYMPHOCYTES ABSOLUTE AUTO 1.36 K/mm3 (0.84-5.20); LYMPHOCYTES PERCENT AUTO 14 % (21-46); MONOCYTES ABSOLUTE AUTO 0.66 K/mm3 (0.16-1.47); MONOCYTES PERCENT AUTO 7 % (4-13); Mean Corpuscular HGB 31.3 pg (26.0-34.0); Mean Corpuscular HGB Conc 31.7 g/dL (31.5-36.5); Mean Corpuscular Volume 99 fL (80-100); Mean Platelet Volume 9.1 fL (9.1-12.4); NEUTROPHILS ABSOLUTE AUTO 7.54 K/mm3 (1.96-9.15); NEUTROPHILS PERCENT AUTO 77 % (41-73); Platelet Count 438 K/mm3 (150-400); RDW Coefficient Variation 13.2 % (11.7-14.2); RDW Standard Deviation 47.7 fL (35.1-46.3); Red Blood Cell Count 3.48 M/mm3 (4.30-5.90)
[2022-06-14 20:58] LABS: Albumin, Blood 3.1 g/dL (3.4-5.0); Albumin/Globulin Ratio 0.7 (0.8-1.8); Bilirubin, Total 0.3 mg/dL (0.1-1.0); Bun/Creatinine Ratio 6.1 (12.0-20.0); Calcium, Blood 9.5 mg/dL (8.5-10.1); Creatinine, Blood 6.27 mg/dL (0.60-1.20); Globulin, Blood 4.3 g/dL (2.2-4.0); Potassium, Blood 4.8 mmol/L (3.5-5.5); Total Protein, Blood 7.4 g/dL (6.4-8.2)
[2022-06-15] MEDS ORDERED: CLIN300 PO (00:38)
[2022-06-15] MEDS ORDERED: HYDROCODONE-AC1 EA11 PO (00:38)
[2022-06-15] MEDS ORDERED: METR500 PO (00:38)
== END 2022-06-15 01:17 | disposition home or self-care (01) ==
LOC: ER 20:06
PROVIDERS: Emergency Medicine
DX: K52.9 Noninfective gastroenteritis and colitis, unspecified (principal); K57.20 Diverticulitis of large intestine with perforation and abscess without bleeding; I12.0 Hypertensive chronic kidney disease with stage 5 chronic kidney disease or end stage renal disease; N18.6 End stage renal disease; Z88.0 Allergy status to penicillin; Z88.2 Allergy status to sulfonamides; Z88.8 Allergy status to other drugs, medicaments and biological substances; Z79.899 Other long term (current) drug therapy
CPT/HCPCS: 36415; 74177; 80053; 83690; 85025; A9270; J1170; J2270; J2405; Q9967

== ENCOUNTER → 2022-07-10 | Outpatient (CLI) | payer MEDICARE, OTHER ==
[~2022-07-10] MED LIST changes: +CLIN300 PO; +HYDROCODONE-AC1 EA11 PO
[2022-07-10 15:19] LABS: BASOPHILS ABSOLUTE AUTO 0.04 K/mm3 (0.00-0.23); BASOPHILS PERCENT AUTO 1 % (0-2); EOSINOPHILS PERCENT AUTO 4 % (0-6); Hematocrit 33.4 % (37.0-53.0); Hemoglobin 10.5 g/dL (13.5-17.5); IMMATURE GRAN ABSOLUTE AUTO 0.01 K/mm3 (0.00-0.10); IMMATURE GRAN PERCENT AUTO 0 % (0-1); LYMPHOCYTES ABSOLUTE AUTO 1.83 K/mm3 (0.84-5.20); LYMPHOCYTES PERCENT AUTO 36 % (21-46); MONOCYTES ABSOLUTE AUTO 0.44 K/mm3 (0.16-1.47); MONOCYTES PERCENT AUTO 9 % (4-13); Mean Corpuscular HGB 30.8 pg (26.0-34.0); Mean Corpuscular HGB Conc 31.4 g/dL (31.5-36.5); Mean Corpuscular Volume 98 fL (80-100); Mean Platelet Volume 9.6 fL (9.1-12.4); NEUTROPHILS PERCENT AUTO 51 % (41-73); Platelet Count 249 K/mm3 (150-400); RDW Coefficient Variation 13.3 % (11.7-14.2); RDW Standard Deviation 47.7 fL (35.1-46.3); Red Blood Cell Count 3.41 M/mm3 (4.30-5.90); White Blood Cell Count 5.12 K/mm3 (4.00-11.30)
== END | disposition home or self-care (01) ==
LOC: LAB SHORT 08:48 → LAB 08:48
PROVIDERS: Nurse Practitioner Family
DX: K57.20 Diverticulitis of large intestine with perforation and abscess without bleeding (principal)
CPT/HCPCS: 85025

== ENCOUNTER 2025-05-04 09:11 | Day surgery (SDC) | payer MEDICARE, OTHER ==
[~2025-05-04] VITALS: Ht 177.8 cm; Wt 70.9 kg
[~2025-05-04 09:11] MED LIST changes: +CALCITRIOL0.5 MC1 PO
[2025-05-04] MEDS ORDERED: Verapamil HCL 2.5 MG/ML 2ML Injection ONE (09:31)
[2025-05-04] MEDS ORDERED: Nitroglycerin 2 MG/20 ML BTL ONE (09:32)
[2025-05-04] MEDS ORDERED: NS 1,000 ML IV ONE ×2 (09:32→10:07)
[2025-05-04] MEDS ORDERED: NS 250 ML IV ONE (09:32)
[2025-05-04] MEDS ORDERED: Heparin Sodium 1000 Units/ML 10ML MDV ONE ×2 (09:32→10:07)
[2025-05-04 09:33] VITALS: BP 176/108
[2025-05-04] MEDS ORDERED: PANT40 PO (09:37)
[2025-05-04] MEDS ORDERED: SEVEC800 PO (09:37)
[2025-05-04] MEDS ORDERED: METO25ER PO (09:38)
[2025-05-04] MEDS ORDERED: FURO80 PO (09:38)
[2025-05-04] MEDS ORDERED: FentaNYL Citrate 50 MCG/ML 2 ML Injection ONE (10:13)
[2025-05-04] MEDS ORDERED: Midazolam HCl 1MG / ML 2ML Vial ONE (10:13)
[2025-05-04 11:30] VITALS: BP 206/136
[2025-05-04 11:45] VITALS: BP 214/140
[2025-05-04 12:00] VITALS: BP 215/137
[2025-05-04 12:30] VITALS: BP 207/135
[2025-05-04 13:00] VITALS: BP 181/96
--- NOTE | 2025-05-04 13:49 | NUR ---
PATIENT TR BAND DEFLATED EARLIER, DISCUSSED D/C INSTRUCTIONS, F/U APPT, D/C MEDS, OTHER QUESTIONS, NO CONCERNS AT THIS TIME, TR BAND REMOVED, IV REMOVED, PATIENT PAINFUL TO AFFECTED ARM BUT SITE INTACT, NO CONCERNS. MONITORED FOR 10 MORE MINUTES, NO CHANGE, NO CONCERN, PATIENT REPORT PAIN OK, DENIED NEEDS AT D/C, DRESSED AND BELONGINGS RETURNED, TAKEN TO VEHICLE AND LEFT WITH . OFF UNIT AT 1330.
== END 2025-05-04 13:30 | disposition home or self-care (01) ==
LOC: MHTC 09:11
DX: I42.0 Dilated cardiomyopathy (principal); I27.20 Pulmonary hypertension, unspecified; I34.0 Nonrheumatic mitral (valve) insufficiency; I12.0 Hypertensive chronic kidney disease with stage 5 chronic kidney disease or end stage renal disease; N18.6 End stage renal disease; E78.5 Hyperlipidemia, unspecified; F17.200 Nicotine dependence, unspecified, uncomplicated; Z79.899 Other long term (current) drug therapy; Z88.0 Allergy status to penicillin; Z88.1 Allergy status to other antibiotic agents; Z88.2 Allergy status to sulfonamides; Z88.8 Allergy status to other drugs, medicaments and biological substances
CPT/HCPCS: 76937; 93460; 99152; 99153; C1769; C1887; C1894; J1644; J2250; J3010; J7030; J7050; Q9967